=== PATIENT | male | born 1950 | race Caucasian/White ===

== ENCOUNTER 2016-10-31 15:34 | Inpatient (IN) ==
[2016-10-31] MEDS ORDERED: KETOROLAC 30 MG/1 ML VIAL IV STA (16:17)
--- NOTE | 2016-10-31 16:24 | Emergency Department Note ---
Arrival - Arrival Chief Complaint: Fever Stated Complaint: fever,sent by Dr Johnson ED Nursing Triage Note: Pt c/o Fever x 5 wks. Pt has been to see ABX several times for same complaint. Pt was sent to ER for admission by Dr Johnson. + BCX from Dr Johnson's office. Mode of Arrival: Wheelchair Limitations: No Limitations Source: Patient Time Seen by Provider: 10/31/16 16:16 - History of Present Illness HPI Narrative: This 65-year-old white male presents with 5 weeks of insidious progressive cough , weakness, and unrelenting fever. The patient is followed by Dr. Johnson and has been given several therapeutic interventions without resolution of the symptoms which in the past 2 weeks have only accelerated in their impact. The patient who is usually a very active person, has no energy whatsoever. He was seen yesterday by Dr. Johnson and begun on Augmentin and blood cultures were drawn. Subsequently blood cultures demonstrated gram-positive cocci and for this reason he is referred for admission to rule out possible endocarditis and delineate source of persistent fever. The patient denies night sweats, nausea, vomiting, or sinus symptoms. He does complain of mechanical sternal chest wall pain after 5 weeks of persistent dry cough. In association with this he has noted at times slight wheezing. Most significant however is acute onset of rash on the trunk, myalgias, and rheumalgias of onset this morning after beginning the Augmentin. The patient is otherwise in no acute medical distress currently. Onset (ago): week(s) (Patient presents 5 weeks post onset of symptoms) Allergies/Adverse Reactions: Allergies Allergy/AdvReac Type Severity Reaction Status Date / Time morphine AdvReac Confusion Verified 10/31/16 15:38 Review of System - Review of System 12 point system: reviewed and no additional remarkable complaints except as stated - Review of System Constitutional: Present: as per HPI Head/Ears/Nose/Throat: Present: see HPI Respiratory: Present: as per HPI Cardiovascular: Present: as per HPI Gastrointestinal: Present: as per HPI Musculoskeletal: Present: as per HPI Skin: Present: as per HPI Medical,Surgical,& Family Hx - Medical History Cardio: History of: Hypertension - Surgical History Abdominal Surgeries: Surgical HX of: Appendectomy, Cholecystectomy Orthopedic Surgeries: Surgical HX of;: Orthopedic Surgery (Fawad Shoulder, right knee, carpal tunnel) - Social History Smoking Status: Never smoker Exam Physical Examination: GENERAL: Well developed, well nourished white male in no acute distress. HEENT: Normocephalic. No trauma. Moist mucous membranes. EOMI. PERRLA. ENT NML NECK: Supple. No adenopathy. CARDIAC: Regular. No murmurs. Heart rate 98 CHEST: Clear to auscultation. No respiratory distress. O2 sat 96%. Tender right left costosternal junctions with compression. ABDOMEN: Soft. Nontender. Active bowel sounds. EXTREMITIES: No trauma. Normal ROM. No pedal edema. SKIN: No diaphoresis. No rash. NEURO: Alert. Neuro intact no focal deficits. Vital Signs: Vital Signs Temperature 100.8 F H 10/31/16 15:37 Pulse Rate 95 H 10/31/16 16:15 Respiratory Rate 20 10/31/16 16:15 Blood Pressure 129/77 10/31/16 16:15 O2 Sat by Pulse Oximetry 100 10/31/16 16:15 Course - Reevaluation(s) Reevaluation #1: Patient presents prepared for admission - Consultations Consultation #1: Discussed with hospitalist service who will admit for further evaluation treatment. Disposition Clinical Impression: Fever of unknown origin, Positive blood cultures, Penicillin allergy Case discussed with: patient, patient's family Time of Disposition: 16:31
[2016-10-31] MEDS ORDERED: KETOROLAC 30 MG/1 ML VIAL ONE (16:32)
[2016-10-31 16:33] LABS: Basophils % 0.1 % (0.0-0.8); Eosinophils % 0.6 % (0.00-10.9); Hematocrit 39.8 VOL% (42.0-52.0); Hemoglobin 14.6 GM/DL (14.0-18.0); Immature Granulocytes % 0.1 %; Immature Granulocytes Absolute 0.01 #; Lymphocytes # 1.7 10*3/uL (1.4-4.0); Mean Corpuscular HGB Conc 36.7 GM/DL (32-36); Mean Corpuscular Hemoglobin 33 PG (27-34); Mean Corpuscular Volume 89.6 FL (87-102); Mean Platelet Volume 9.3 FL (9.6-12.0); Monocytes # 0.5 10*3/uL (0.11-0.8); Monocytes % 6.5 % (1.7-12.7); Neutrophils % 69.7 % (38.7-73.9); Platelet Count 156 T/CUMM (130-400); Red Blood Count 4.44 MC/CUMM (3.8-5.5); Red Cell Distribution Width 13.2 % (9.3-17.3); White Blood Count 7.2 T/CUMM (4-12)
--- NOTE | 2016-10-31 16:45 | XRay Report ---
2 view chest 10/31/2016 4:17 PM Indication: Shortness of breath Fever Comparison: Not available Findings: Cardiomediastinal contours are normal. Lungs are clear bilaterally. . No acute osseous abnormalities. Visualized upper abdomen demonstrates no acute pathology. Impression: No acute cardiopulmonary findings PROCEDURE INTERPRETED AT [facility] DEPARTMENT OF RADIOLOGY Final Report Signed by: Ochoa Nair
[2016-10-31 16:52] LABS: INR 1.1; PT Patient Result 11.8 SECS
[2016-10-31 16:58] LABS: Apearance,Urine CLEAR (Clear); Bilirubin,Urine Negative (Negative); Blood, Urine Negative (Negative); Glucose,Urine (UA) Negative (Negative); Ketones,Urine Negative (Negative); Mucus,Urine Few /LPF (Occasional); Nitrite,Urine Negative (Negative); Protein,Urine Negative; RBC,Urine 2 /HPF (0-4); Urine Color Yellow (Yellow); Urine Specific Gravity 1.017 (1.001-1.035); WBC,Urine 1 /HPF (0-6)
--- NOTE | 2016-10-31 16:59 | EKG Report ---
Stationary ECG Study [facility] ER Test Date: 10/31/2016 4:57:42 PM Pat Name: GRECIA PALMA Department: Room: Gender: M Fee Clerk: : 1950 Requested by: Oskar Grace Order Number: [id number] Reading MD: STEPHENIE CANTU Intervals Schneider Rate: 89 P: 7 CO: 122 QRS: 32 QRSD: 73 T: 30 QT: 336 QTc: 383 Interpretive Statements SINUS RHYTHM WARNING: DATA QUALITY MAY AFFECT INTERPRETATION Electronically Signed On 10-31-16 19:18:33 CDT by STEPHENIE CANTU [email or web address]
[2016-10-31] MEDS ORDERED: PROMETHAZINE 25 MG/1 ML VIAL IM PRN (17:07)
[2016-10-31] MEDS ORDERED: ONDANSETRON 4 MG/2 ML VIAL IV PRN (17:07)
[2016-10-31] MEDS ORDERED: DOCUSATE SODIUM 100 MG CAPSULE PO PRN (17:07)
[2016-10-31] MEDS ORDERED: diphenhydrAMINE CAP 25 MG CAPSULE PO PRN (17:07)
[2016-10-31] MEDS ORDERED: MORPHINE 2 MG/1 ML SYRINGE IV PRN (17:07)
[2016-10-31] MEDS ORDERED: guaiFENesin/DM ER 600-30 MG TABLET PO PRN (17:07)
[2016-10-31] MEDS ORDERED: HYDROmorphone 2 MG/1 ML VIAL IV PRN (17:21)
--- NOTE | 2016-10-31 17:22 | Hospitalist History & Physical ---
Assessment and Plan - Time spent with patient Time spent with patient: Greater than 30 minutes (1) Fever of unknown origin Status: Acute Assessment and plan: 65-year-old white male with history of hypertension admitted by hospital medicine with fever of unknown origin. At Dr. Johnson's office he had 1 out of 2 blood cultures positive for gram-positive cocci and a sed rate of 70. Patient does have a fever of 100.8 in the ED but his chest x-ray, UA, and white blood cell counts are all normal. Repeat blood cultures are pending along with the remainder of his labs. Checking an echo to rule out endocarditis, HIV and hepatitis panels. We will go ahead and start vancomycin empirically and consult Dr. Fede Johnson to assist. Dr. Smith will see and examine patient and further recommendations to follow. Current Visit: Yes (2) Hypertension Status: Acute Current Visit: Yes (3) Myalgia Status: Acute Current Visit: Yes (4) Elevated sed rate Status: Acute Current Visit: Yes (5) Positive blood cultures Status: Acute Current Visit: Yes History of Present Illness Chief complaint: Fever and cough History of present illness: Mr. Coh is a 65 year old white male with history of hypertension presenting to the ED from Dr. Fede Johnson's office with fever and cough. Patient states he has had fever intermittently for approximately 5 weeks up to 102. He states he has had muscle aches along with a cough as well. Patient states he has been to his family physician who sent him to Dr. Johnson. Patient's been treated with antibiotics and steroids. Patient states the cough will disappear with the steroids but the fevers continued. For the last 2 weeks patient has gradually worsened. He states he is having terrible muscle aches with fever and chills at night. He says he has not been out of the bed much and he has not been eating well. Patient was seen in Dr. Johnson's office on 10/28/2016 where blood cultures were taken and 1 out of 2 are positive for gram-positive cocci. Upon exam, patient is awake and alert. His fever is 100.8 but the remainder of his vital signs are stable. He was put on Augmentin 2 days ago and he does have a rash on his abdomen and axillary region. Patient's white count is normal at 7.2, coags okay, urine is clear, and chest x-ray is normal. Patient's chemistry and repeat cultures are pending. After discussion with Dr. Davis the ED physician and Dr. Smith the admitting hospitalist, it was agreed patient would be admitted for further evaluation and treatment. Home Medications Medication Instructions Recorded Confirmed Type Esomeprazole Magnesium [Nexium] 40 mg PO QAM 10/31/16 10/31/16 History Lisinopril [Prinivil] 10 mg PO QAM 10/31/16 10/31/16 History Allergies Allergy/AdvReac Type Severity Reaction Status Date / Time morphine AdvReac Confusion Verified 10/31/16 15:38 Medical,Surgical,& Family Hx - Medical History Cardio: History of: Hypertension - Surgical History Cardiac Surgeries: Sugical HX of: Cardiac Catheterization Abdominal Surgeries: Surgical HX of: Appendectomy, Cholecystectomy Orthopedic Surgeries: Surgical HX of;: Orthopedic Surgery (Fawad Shoulder, right knee, carpal tunnel) - Family History Family History: Reports;: Family Heart Disease - Social History Smoking Status: Never smoker Frequency of Alcohol Use: None Type of Drug Use: None Marital Status: Lives With:: Spouse Functional capacity: independent ambulation 12 point system: reviewed and no additional remarkable complaints except as stated Exam - Constitutional Vitals: Period Temp Pulse Resp BP Sys/Dixon Pulse Ox Last 24 Hr 100.8 F-100.8 F 89-98 18-20 129-146/71-93 96-100 Exam: Constitutional System: No distress. No tremulousness. Head: Normocephalic, atraumatic. Ears, Nose and Throat System: No evidence of Otitis or Mastoiditis. No epistaxis or discharge Eyes System: Pupils equal, round, and reactive. Extraocular muscles intact. Neck: Supple, without adenopathy, No jugular venous distention. No thyromegaly, neck mass, or prior surgery apparent. Respiratory System: Chest clear to auscultation. Cardiovascular System: Heart with regular rate and rhythm. No murmur. GI System: Abdomen soft, nontender. Normo active bowel sounds present. Musculoskeletal System: limbs with no pedal edema. Full distal pulses. Neurological System: No discernable sensory deficit. No aphasia Psychiatric System: Conversation is rational Results - Labs CBC & BMP: 10/31/16 16:24 10/31/16 16:24 Lab Results: I have reviewed the past 24 hour labs - EKG EKG results: sinus rhythm - Diagnostic Findings Procedure: Chest x-ray: report reviewed by me (No acute process)
[2016-10-31 17:25] LABS: Alanine Aminotransferase 51 U/L (16-61); Albumin 3.2 G/DL (3.4-5.0); Alkaline Phosphatase 55 U/L (45-117); Aspartate Amino Transferase 45 U/L (0-37); Blood Urea Nitrogen 13 MG/DL (7-18); Calcium 8.4 MG/DL (8.5-10.1); Glucose 132 MG/DL (74-106); Potassium 4.1 MMOL/L (3.5-5.1); Sodium 136 MMOL/L (136-145); Total Protein 7.2 G/DL (6.4-8.3); Troponin I Only < 0.015 NG/ML (0.00-0.045)
[2016-10-31 17:42] LABS: Sedimentation Rate-Westergren 26 MM/HR (0-20)
[2016-10-31] MEDS ORDERED: KETOROLAC 15 MG/1 ML VIAL IV PRN (17:44)
[2016-10-31 17:54] LABS: Risk Ratio 3.66; Thyroid Stimulating Hormone 1.56 uIU/ml (0.358-3.74); VLDL CHOLESTEROL 14.4 MG/DL
[2016-10-31] MEDS: SODIUM CHLORIDE 0.9% 1,000 ML IV SCH (18:01)
[2016-10-31 18:32] LABS: HIV Antigen/Antibody Result Nonreactive (Nonreactive)
[2016-10-31 18:32] LABS: Hepatitis A Ab IgM Quant 0.07 Index; Hepatitis A Ab IgM Result Negative (Negative); Hepatitis B Core IgM Quant 0.13 Index; Hepatitis B Core IgM Result Negative (Negative); Hepatitis B Surface Ag Quant < 0.10 Index; Hepatitis B Surface Ag Result Negative (Negative); Hepatitis C Virus Ab Quant 0.03 Index; Hepatitis C Virus Ab Result Negative (Negative)
[2016-10-31] MEDS ORDERED: IPRATROPIUM 500 MCG/2.5 ML NEB RESP TX SCH (19:00)
--- NOTE | 2016-10-31 19:36 | Pulmonology Consult Note ---
Assessment and Plan (1) Fever of unknown origin Status: Acute Assessment and plan: The patient has had a recurrent fever and is not totally clear the source. He will get an echocardiogram. He is getting repeat cultures. Current Visit: Yes (2) Hypertension Status: Acute Assessment and plan: He does take lisinopril but I do not think this is causing a problem. Current Visit: Yes (3) Elevated sed rate Status: Acute Assessment and plan: He is having fever with elevated sed rate and will be evaluated for endocarditis and other infections. Current Visit: Yes (4) Positive blood cultures Status: Acute Assessment and plan: He will have repeat blood cultures. Current Visit: Yes History of Present Illness Chief complaint: Recurrent fever History of present illness: Mr. Cho is a 65 year old white male that is a former smoker and has a history of hypertension but have been quite active and healthy. I first saw him in the office in August when he was having a recurrent persistent cough and was actually having some reflux symptoms and trouble swallowing. His exam was unremarkable and his PFTs look fairly normal. However because of his persistent coughing symptoms we put him on Nexium and gave him a short course of prednisone along with a Breo inhaler. He says his cough cleared up quickly and he felt much better. He really did not use inhaler very much. He said he felt much better on October 15 and we actually told him to return as needed. He came back on October 28 stating that he felt bad again. He said he had been having fevers to 101 and 102 range and having some vague chest pain and aches. He just did not feel like doing much. Once again his chest x-ray was unchanged. He did not look that bad on exam. We did blood cultures along with a CBC and sed rate. His CBC was unremarkable but his sed rate was 70. His blood cultures had come back positive for gram-positive cocci. He was started on Augmentin and now he has a rash. He still feels terrible he says. He still has a dry cough. He is not terribly short of breath. He is not complaining of sinus congestion. He says he is having fever and chills. Home Medications Medication Instructions Recorded Confirmed Type Esomeprazole Magnesium [Nexium] 40 mg PO QAM 10/31/16 10/31/16 History Lisinopril [Prinivil] 10 mg PO QAM 10/31/16 10/31/16 History Allergies Allergy/AdvReac Type Severity Reaction Status Date / Time morphine AdvReac Confusion Verified 10/31/16 15:38 - Constitutional Constitutional: Present: chills, fatigue, fever(s), malaise. Absent: weight loss - EENT Eyes: Absent: loss of vision Ears: Absent: decreased hearing Nose, mouth and throat: Absent: dysphagia, headache(s), sinus pressure, sore throat - Cardiovascular Cardiovascular: Present: chest pain at rest, dyspnea on exertion - Respiratory Respiratory: Present: cough, dyspnea on exertion. Absent: hemoptysis, pain on inspiration, change in phlegm color - Gastrointestinal Gastrointestinal: Present: dyspepsia, heartburn. Absent: abdominal pain, change in bowel habits, nausea, vomiting - Genitourinary Genitourinary: Absent: difficulty urinating, dysuria, hematuria, urinary frequency - Musculoskeletal Musculoskeletal: Present: arthralgias, myalgias - Neurological Neurological: Absent: abnormal speech, focal weakness, paresthesias - Psychiatric Psychiatric: Present: anxiety Exam (Pulmonay) H&P - Constitutional Vitals: Period Temp Pulse Resp BP Sys/Dixon Pulse Ox Last 24 Hr 100.8 F-100.8 F 88-98 18-20 115-146/71-93 95-100 General appearance: no acute distress, over weight - Head Head exam: Present: normal inspection, normocephalic - Eye Eye exam: Present: EOMI. Absent: scleral icterus - ENT ENT exam: Present: normal exam, normal oropharynx - Neck Neck exam: Absent: lymphadenopathy, thyromegaly - Respiratory Respiratory exam: Present: clear to auscultation bilaterally. Absent: rales, wheezes - Cardiovascular Cardiovascular exam: Present: regular rate and rhythm. Absent: gallop, systolic murmur - GI/Abdominal GI/Abdominal exam: Present: soft. Absent: distended, organomegaly, tenderness - Extremities Exam Extremities exam: Absent: calf tenderness, edema - Neurological Exam Neurological exam: Present: alert, oriented X3, CN II-XII intact - Psychiatric Psychiatric exam: Present: anxious - Skin Skin exam: Present: rash Medical,Surgical,& Family Hx - Medical History Cardio: History of: Hypertension Musculoskeletal: History of: Back/Neck Problems (ruptured disc L4/L5) - Surgical History Cardiac Surgeries: Sugical HX of: Cardiac Catheterization Abdominal Surgeries: Surgical HX of: Appendectomy, Cholecystectomy Reproductive Surgeries: Patient denies;: Genitourinary Surgery Orthopedic Surgeries: Surgical HX of;: Orthopedic Surgery (Fawad Shoulder, right knee, carpal tunnel) - Family History Family History: Reports;: Family Cancer (uncles esophageal ca), Family Diabetes (mom), Family Heart Disease, Family Hypertension (siblings) Denies;: Family Anesthesia Reaction, Family Hematology, Family Psychiatric Problems, Family Stroke, Additional Family History - Social History Smoking Status: Never smoker Frequency of Alcohol Use: None Type of Drug Use: None Results - Labs CBC & BMP: 10/31/16 16:24 10/31/16 16:24 Labs: His sed rate in the office was 70 and his blood cultures positive - Diagnostic Findings Procedure: Chest x-ray: image reviewed by me, report reviewed by me (Chest x- ray is really unchanged. He may have some minimal increased markings in the left base.)
[2016-10-31] MEDS: VANCOMYCIN INJ 1,250 MG in SODIUM CHLORIDE 0.9% 250 ML IV SCH (20:11)
[2016-11-01] MEDS: ALBUTEROL/IPRATROPIUM 3 ML NEB RESP TX SCH ×4 (01:55→19:43)
[2016-11-01] MEDS: SODIUM CHLORIDE 0.9% 1,000 ML IV SCH ×3 (02:45→19:08)
[2016-11-01 06:12] LABS: Basophils % 0.3 % (0.0-0.8); Eosinophils # 0.1 10*3/uL (0.0-0.87); Eosinophils % 1.5 % (0.00-10.9); Hematocrit 37.1 VOL% (42.0-52.0); Hemoglobin 13.5 GM/DL (14.0-18.0); Immature Granulocytes % 0.3 %; Immature Granulocytes Absolute 0.02 #; Lymphocytes # 1.4 10*3/uL (1.4-4.0); Lymphocytes % 24.2 % (21.2-54.2); Mean Corpuscular HGB Conc 36.4 GM/DL (32-36); Mean Corpuscular Hemoglobin 33 PG (27-34); Mean Corpuscular Volume 89.8 FL (87-102); Mean Platelet Volume 9.8 FL (9.6-12.0); Monocytes # 0.5 10*3/uL (0.11-0.8); Monocytes % 8.5 % (1.7-12.7); Neutrophils # 3.8 10*3/uL (1.4-7.4); Neutrophils % 65.2 % (38.7-73.9); Platelet Count 149 T/CUMM (130-400); Red Blood Count 4.13 MC/CUMM (3.8-5.5); Red Cell Distribution Width 12.8 % (9.3-17.3); White Blood Count 5.9 T/CUMM (4-12)
[2016-11-01 06:42] LABS: Calcium 8.3 MG/DL (8.5-10.1); Osmolality,Calculated 273.8 MOS/KG (273-304); Potassium 4.3 MMOL/L (3.5-5.1)
[2016-11-01] MEDS ORDERED: PANTOPRAZOLE 40 MG TABLET PO SCH (09:00)
--- NOTE | 2016-11-01 09:13 | Hospitalist Progress Note ---
Assessment and Plan (1) Bacteremia Status: Acute Assessment and plan: Blood cultures have demonstrated gram-positive cocci. He had been treated unsuccessfully as an outpatient briefly with Augmentin. He was begun on intravenous vancomycin yesterday. I have consulted infectious diseases and cardiology, the latter for a possible transesophageal echocardiogram. He is scheduled to undergo a transthoracic echocardiogram today. Current Visit: Yes (2) Fever of unknown origin Status: Acute Assessment and plan: See above. Current Visit: Yes (3) Drug-induced skin rash Status: Acute Assessment and plan: He developed the rash after starting therapy with Augmentin. He has no previously known drug allergies. It is most likely that the rash is due to an allergy to Augmentin. Current Visit: Yes Hospitalist: Subjective Interval history: Patient was admitted to the hospital yesterday with fever of unknown origin of approximately 1 month's duration and gram-positive cocci bacteremia. He had been begun on therapy with Augmentin as an outpatient following which he developed an erythematous rash. He has no specific complaint. He was begun yesterday on intravenous vancomycin. Exam - Constitutional Vitals: Period Temp Pulse Resp BP Sys/Dixon Pulse Ox Last 24 Hr 98.9 F-100.8 F 79-98 18-20 112-146/70-93 95-100 General appearance: no acute distress - Head Head exam: Present: normal inspection - Neck Neck exam: Present: normal inspection - Respiratory Respiratory exam: Present: clear to auscultation bilaterally - Cardiovascular Cardiovascular exam: Present: regular rate and rhythm - GI/Abdominal GI/Abdominal exam: Present: normal bowel sounds, soft, other (Nontender with no palpable masses or hepatosplenomegaly.) - Extremities Exam Extremities exam: Present: normal inspection - Neurological Exam Neurological exam: Present: alert, oriented X3 - Skin Skin exam: Present: other (Macular erythematous rash of his abdomen, left shoulder, and upper back.) Results - Labs CBC & BMP: 11/01/16 05:18 11/01/16 05:18
--- NOTE | 2016-11-01 10:01 | Pulmonology Progress Note ---
Pulmonary - PN: Subj Interval history: Patient is a 65-year-old man that comes in with persistent fevers and has had a somewhat chronic cough. He has not been feeling well for quite some time. He came in because he was having fever again and in the office this past week we had a positive blood culture. He has a dry cough. His temp was 100.8 last night. He had a sed rate of 70 in the office but is down to 26 now. His white count is 5900. He says he is feeling a little better this morning and his fever is down. He is not having any shortness of breath. He still has a dry cough. Otherwise he looks like he is feeling a little better. Exam (Progress Note) - Constitutional Vitals: Period Temp Pulse Resp BP Sys/Dixon Pulse Ox Last 24 Hr 98.9 F-100.8 F 79-98 18-20 112-146/70-93 95-100 Exam: General appearance: no acute distress, over weight, he looks comfortable this morning. - Head Head exam: Present: normal inspection, normocephalic - Eye Eye exam: Present: EOMI. Absent: scleral icterus - ENT ENT exam: Present: normal exam, normal oropharynx - Neck Neck exam: Absent: lymphadenopathy, thyromegaly - Respiratory Respiratory exam: Present: clear to auscultation bilaterally. He has good breath sounds bilaterally and he still moving air well. I do not hear any signs of consolidation. - Cardiovascular Cardiovascular exam: Present: regular rate and rhythm. No definite murmur. - GI/Abdominal GI/Abdominal exam: Present: soft. Absent: distended, organomegaly, tenderness - Extremities Exam Extremities exam: Absent: calf tenderness, edema - Neurological Exam Neurological exam: Present: alert, oriented X3, CN II-XII intact - Psychiatric Psychiatric exam: Present: anxious - Skin Skin exam: Present: rash Results - Labs CBC & BMP: 11/01/16 05:18 11/01/16 05:18 Assessment and Plan (1) Fever of unknown origin Status: Acute Assessment and plan: The patient has had a recurrent fever and is not totally clear the source. He will get an echocardiogram. He is getting repeat cultures. His fever is down this morning. Current Visit: Yes (2) Hypertension Status: Acute Assessment and plan: He does take lisinopril but I do not think this is causing a problem. Current Visit: Yes (3) Elevated sed rate Status: Acute Assessment and plan: He is having fever but his sed rate is better now. Current Visit: Yes (4) Positive blood cultures Status: Acute Assessment and plan: He will have repeat blood cultures. His fever is down this morning. He will get an echocardiogram. Current Visit: Yes
[2016-11-01] MEDS: PANTOPRAZOLE 40 MG TABLET PO SCH (10:36)
[2016-11-01] MEDS: LISINOPRIL 10 MG TABLET PO SCH (10:36)
[2016-11-01] MEDS: VANCOMYCIN INJ 1,250 MG in SODIUM CHLORIDE 0.9% 250 ML IV SCH ×2 (10:36→20:55)
[2016-11-01] MEDS: ACETAMINOPHEN 325 MG TABLET PO PRN (15:52)
[2016-11-01] MEDS: ENOXAPARIN 40 MG/0.4 ML SYRINGE SUBCUT SCH (17:00)
--- NOTE | 2016-11-01 19:36 | Cardiology Consult Note ---
Assessment and Plan (1) Bacteremia Status: Acute Current Visit: Yes (2) Fever of unknown origin Status: Acute Current Visit: Yes (3) Hypertension Status: Acute Current Visit: Yes (4) Cough Status: Acute Current Visit: Yes (5) Drug-induced skin rash Status: Acute Current Visit: Yes History of Present Illness - Data of Consult Patient: new to practice Consult date: 11/01/16 Requesting Physician: Teressa Duenas - Consult Narrative Reason for consult: fever History of present illness: Vendette: Dr. Viveros Mr. Cho is a 65 year old male without a prior cardiac history, and with risk factors significant for hypertension. He was admitted to the hospital for fever of unknown origin. Over the last 2-3 months he has had a decline in his overall health with generalized malaise, fatigue and intermittent fevers. He has also been experiencing a cough that is occasionally productive of white sputum although not normally. He was started on an CANDACE inhibitor approximately 4 months ago, he did try to withhold his CANDACE inhibitor but did not notice a change in his cough when he did this. He was treated with some Augmentin by his primary care provider and then eventually developed a rash. He has not noticed any signs of infection on his body, denies any sores, earaches, sore throat, sinus pain. He has had a significant decline in his exercise tolerance. He has a progressive dyspnea on exertion that has been occurring over the last year, and now he is dyspneic with 100 yards. He has had some mild lower extremity edema. He denies any chest pain. He has had some intermittent palpitations and has had a few presyncopal episodes over the last few months, 2 of which occurred while driving. He was found to have gram-positive cocci bacteremia. There is no clear source of this bacteremia. We are being consulted for possible SHAYAN. Chest x-rays been unremarkable. Echocardiogram shows preserved LV systolic function, minor valvular regurgitations, pulmonary hypertension, but in general the leaflets are not seen well enough to exclude valvular vegetation. He has developed a rash that is somewhat pruritic over his thorax that seems to be related to the timing of his antibiotic usage (Augmentin). I has some occasional arthralgias. He did have some intermittent nausea but overall he thinks that has improved. He saw Dr. Viveros greater than 5 years ago and underwent a cardiac catheterization at that time which did not show any significant obstructive coronary disease. He has never been diagnosed with any arrhythmias. Impression and plan: 1. Gram-positive bacteremia-a source has not been identified. I agree we should proceed with transesophageal echocardiogram, which will likely occur on Thursday when we can get anesthesia assistance. I have discussed the role, risks , benefits and alternatives of this procedure with the patient and his . 2. Presyncope-we will place the patient on telemetry. 3. Palpitations-we will place patient on telemetry. 4. Hypertension-chronic 5. Cough-this could represent an infectious source, although could be related to his CANDACE inhibitor therapy. I am going to go ahead and discontinue his CANDACE inhibitor. CC: Raudel Gamez - Home Medications and Allergies Home Medications: Home Medications Medication Instructions Recorded Confirmed Type Esomeprazole Magnesium [Nexium] 40 mg PO QAM 10/31/16 10/31/16 History Lisinopril [Prinivil] 10 mg PO QAM 10/31/16 10/31/16 History Allergies/Adverse Reactions: Allergies Allergy/AdvReac Type Severity Reaction Status Date / Time morphine AdvReac Confusion Verified 10/31/16 15:38 12 point system: reviewed and no additional remarkable complaints except as stated Medical,Surgical,& Family Hx - Medical History Cardio: History of: Hypertension Musculoskeletal: History of: Back/Neck Problems (ruptured disc L4/L5) - Surgical History Cardiac Surgeries: Sugical HX of: Cardiac Catheterization Abdominal Surgeries: Surgical HX of: Appendectomy, Cholecystectomy Reproductive Surgeries: Patient denies;: Genitourinary Surgery Orthopedic Surgeries: Surgical HX of;: Orthopedic Surgery (Fawad Shoulder, right knee, carpal tunnel) - Family History Family History: Reports;: Family Cancer (uncles esophageal ca), Family Diabetes (mom), Family Heart Disease, Family Hypertension (siblings) Denies;: Family Anesthesia Reaction, Family Hematology, Family Psychiatric Problems, Family Stroke, Additional Family History - Social History Smoking Status: Never smoker Frequency of Alcohol Use: None Type of Drug Use: None Marital Status: Lives With:: Spouse Functional capacity: independent ambulation Physical Examination Vital Signs Temp Pulse Resp BP Pulse Ox 100.8 F H 98 H 20 131/93 96 10/31/16 15:37 10/31/16 15:37 10/31/16 15:37 10/31/16 15:37 10/31/16 15:37 Exam: General appearance: normal weight, no acute distress - Head Head exam: Present: normal inspection, normocephalic, atraumatic. Absent: hematoma, laceration - Eye Eye exam: Present: EOMI. Absent: conjunctival injection, nystagmus, periorbital swelling, scleral icterus, laceration to eyelids Pupils: Present: PERRL. Absent: constricted, dilated, fixed, irregular, unequal - ENT ENT exam: Present: normal exam, normal external ear exam - Neck Neck exam: Present: normal inspection. Absent: lymphadenopathy, meningismus, tenderness, thyromegaly - Respiratory Respiratory exam: Present: There is scant crackles in the right base. Absent: accessory muscle use, chest wall tenderness - Cardiovascular Cardiovascular exam: Present: regular rate and rhythm, no appreciable murmur. Absent: carotid bruit, gallop, JVD, rubs - GI/Abdominal GI/Abdominal exam: Present: normal bowel sounds, soft. Absent: distended, firm , guarding, hernia, mass, tenderness, rebound. - Extremities Exam Extremities exam: Present: normal inspection, normal capillary refill. Absent: calf tenderness, edema - Back Exam Back exam: Present: normal inspection. Absent: muscle spasm, vertebral tenderness - Neurological Exam Neurological exam: Present: alert, oriented X3, grossly intact without resting or intention tremor - Psychiatric Psychiatric exam: Present: normal affect, normal mood - Skin Skin exam: Present: Erythematous rash with mild urticaria on the thorax and proximal limbs. Absent: cyanosis, diaphoretic Result/EKG - Labs CBC & BMP: 11/01/16 05:18 11/01/16 05:18 Lab Results: I have reviewed the past 24 hour labs Labs: Laboratory Results - last 24 hr 11/01/16 11/01/16 05:18 05:18 WBC 5.9 RBC 4.13 Hgb 13.5 L Hct 37.1 L MCV 89.8 MCH 33 MCHC 36.4 H RDW 12.8 Plt Count 149 MPV 9.8 Neut % (Auto) 65.2 Lymph % (Auto) 24.2 Hays % (Auto) 8.5 Eos % (Auto) 1.5 Baso % (Auto) 0.3 Neut # (Auto) 3.8 Lymph # (Auto) 1.4 Hays # (Auto) 0.5 Eos # (Auto) 0.1 Baso # (Auto) 0.0 Immature Gran % 0.3 Nucleated RBC % 0.0 Immature Gran # 0.02 Nucleated RBCs # 0.00 Immature Plt Fraction 0.0 Sodium 137 Potassium 4.3 Chloride 103 Carbon Dioxide 27 Anion Gap 11.3 BUN 14 Creatinine 0.90 GFR Calculation 106 BUN/Creatinine Ratio 15.00 Glucose 90 Calculated Osmolality 273.8 Calcium 8.3 L Magnesium 2.0 - Diagnostic Findings Procedure: Ultrasound: image reviewed by me, X-ray: report reviewed by me
--- NOTE | 2016-11-01 21:14 | ECHO Report ---
Taz Cho Exam Date: 11/01/2016 10:08 Referring Physician: Technologist: Hortensia Wiggins RDCS Age: 65 Ht (in): 67 Wt (lb): 206 Gender: M Exam Location: [facility] Echo Indications: Chest pain, unspecified, Essential (primary) hypertension, Shortness of breath, Fever unknown origin, Positive blood cultures, Elevated sed rate, Chronic fatigue, unspecified, Cough BP: 112 / 77 HR: 85 Rhythm: Sinus Technical Quality: Fair IMPRESSIONS Normal LV systolic function, ejection fraction 60%. Grade 1/4 diastolic dysfunction. Mild right ventricular dilation. Mild left atrial enlargement. Mild mitral, tricuspid and pulmonic regurgitation. Mild to moderate aortic regurgitation. Pulmonary hypertension with pulmonary artery pressure estimated at 62 mmHg. The valves are not seen well enough to exclude vegetation. MEASUREMENTS (Male / Female) Normal Values 2D ECHO LV Diastolic Diameter PLAX 4.9 cm 4.2 - 5.9 / 3.9 - 5.3 cm LV Systolic Diameter PLAX 3.1 cm LV Fractional Shortening PLAX 36.4 % IVS Diastolic Thickness 1.0 cm 0.6 - 1.0 / 0.6 - 0.9 cm LVPW Diastolic Thickness 1.0 cm 0.6 - 1.0 / 0.6 - 0.9 cm RV Internal Dim ED PLAX 3.5 cm Aortic Root Diameter 3.3 cm LA Systolic Diameter LX 4.4 cm 3.0 - 4.0 / 2.7 - 3.8 cm DOPPLER TR Peak Velocity 361.0 cm/s TR Peak Gradient 52.1 mmHg FINDINGS Left Ventricle Normal left ventricular cavity size. Mild left ventricular hypertrophy. Left ventricular ejection fraction is estimated at 60 %. Right Ventricle Mildly increased right ventricular size. Right Atrium Normal size. Left Atrium Mildly increased left atrial size. Mitral Valve Morphologically normal mitral valve. Mild mitral valve regurgitation. Aortic Valve Trileaflet aortic valve. No aortic valve stenosis. [id number] aortic valve regurgitation. Tricuspid Valve Morphologically normal tricuspid valve. Mild tricuspid valve regurgitation. Tricuspid regurgitation velocities suggest a PAP of 62.1 mmHg. Pulmonic Valve Morphologically normal pulmonic valve. Trace pulmonary valve regurgitation. Pericardium Normal pericardium without effusion. Aorta Normal ascending aorta dimension. Keila Sumner MD (Electronically Signed) Final Date: 01 November 2016 21:12
[2016-11-02] MEDS: ACETAMINOPHEN 325 MG TABLET PO PRN ×4 (00:30→21:00)
[2016-11-02] MEDS: ALBUTEROL/IPRATROPIUM 3 ML NEB RESP TX SCH ×4 (00:42→19:27)
[2016-11-02] MEDS: SODIUM CHLORIDE 0.9% 1,000 ML IV SCH ×3 (03:24→21:00)
--- NOTE | 2016-11-02 09:18 | Hospitalist Progress Note ---
Assessment and Plan (1) Bacteremia Status: Acute Assessment and plan: Blood cultures have demonstrated gram-positive cocci. He had been treated unsuccessfully as an outpatient briefly with Augmentin. He was begun on intravenous vancomycin the day before yesterday. He is to undergo a transesophageal echocardiogram tomorrow. Infectious diseases has been consulted. Current Visit: Yes (2) Fever of unknown origin Status: Acute Assessment and plan: See above. Current Visit: Yes (3) Drug-induced skin rash Status: Acute Assessment and plan: He developed the rash after starting therapy with Augmentin. He has no previously known drug allergies. It is most likely that the rash is due to an allergy to Augmentin. The rash is resolving. Current Visit: Yes Hospitalist: Subjective Interval history: Mr. Cho is doing well with no complaints. He continues on intravenous vancomycin for gram-positive cocci bacteremia. Blood cultures in the hospital have been negative. He was seen yesterday by cardiology who is to perform a transesophageal echocardiogram tomorrow morning. Exam - Constitutional Vitals: Period Temp Pulse Resp BP Sys/Dixon Pulse Ox Last 24 Hr 97.3 F-101.4 F 70-104 16-20 108-142/56-75 93-99 General appearance: no acute distress - Head Head exam: Present: normal inspection - Neck Neck exam: Present: normal inspection - Respiratory Respiratory exam: Present: clear to auscultation bilaterally - Cardiovascular Cardiovascular exam: Present: regular rate and rhythm - GI/Abdominal GI/Abdominal exam: Present: normal bowel sounds, soft, other (Nontender with no palpable masses or hepatosplenomegaly.) - Extremities Exam Extremities exam: Present: normal inspection - Skin Skin exam: Present: normal color, warm, intact Results - Labs CBC & BMP: 11/01/16 05:18 11/01/16 05:18
[2016-11-02] MEDS: LISINOPRIL 10 MG TABLET PO SCH (09:30)
[2016-11-02] MEDS: PANTOPRAZOLE 40 MG TABLET PO SCH (09:30)
[2016-11-02] MEDS: VANCOMYCIN INJ 1,250 MG in SODIUM CHLORIDE 0.9% 250 ML IV SCH ×3 (09:31→17:30)
--- NOTE | 2016-11-02 09:31 | Pulmonology Progress Note ---
Pulmonary - PN: Subj Interval history: Patient is a 65-year-old man that comes in with persistent fevers and has had a somewhat chronic cough. He has not been feeling well for quite some time. He came in because he was having fever again and in the office this past week we had a positive blood culture. He has a dry cough. He still had a temperature to 100.8 last night. His fever is down now when he feels a little better. His cough may be a little better and is not short of breath. He said he slept fairly well and his myalgias and arthralgias are better. He still has a rash. His Vanco trough is 7.8. Repeat cultures are still negative. He will have a SHAYAN tomorrow. Exam (Progress Note) - Constitutional Vitals: Period Temp Pulse Resp BP Sys/Dixon Pulse Ox Last 24 Hr 97.3 F-101.4 F 70-104 16-20 108-142/56-75 93-99 Exam: General appearance: no acute distress, over weight, he looks comfortable and in no distress at present. - Head Head exam: Present: normal inspection, normocephalic - Eye Eye exam: Present: EOMI. Absent: scleral icterus - ENT ENT exam: Present: normal exam, normal oropharynx, no sinus tenderness - Neck Neck exam: Absent: lymphadenopathy, thyromegaly - Respiratory Respiratory exam: Present: clear to auscultation bilaterally. He has good breath sounds bilaterally and he still moving air well. I do not hear any signs of consolidation. - Cardiovascular Cardiovascular exam: Present: regular rate and rhythm. No definite murmur. - GI/Abdominal GI/Abdominal exam: Present: soft. Absent: distended, organomegaly, tenderness - Extremities Exam Extremities exam: Absent: calf tenderness, edema - Neurological Exam Neurological exam: Present: alert, oriented X3, CN II-XII intact - Psychiatric Psychiatric exam: Present: anxious - Skin Skin exam: Present: rash Results - Labs CBC & BMP: 11/01/16 05:18 11/01/16 05:18 Assessment and Plan (1) Fever of unknown origin Status: Acute Assessment and plan: The patient has had a recurrent fever and is not totally clear of the source. His repeat cultures are negative so far. He will get a SHAYAN tomorrow. Current Visit: Yes (2) Hypertension Status: Acute Assessment and plan: He does take lisinopril but I do not think this is causing a problem. Cardiology is stopping the lisinopril. Current Visit: Yes (3) Elevated sed rate Status: Acute Assessment and plan: He is having fever but his sed rate is better now. Current Visit: Yes (4) Positive blood cultures Status: Acute Assessment and plan: He will have repeat blood cultures. So far the repeat cultures are negative. He still had a low-grade fever last night. Current Visit: Yes
--- NOTE | 2016-11-02 16:43 | Cardiology Progress Note ---
Assessment and Plan (1) Bacteremia Status: Acute Current Visit: Yes (2) Fever of unknown origin Status: Acute Current Visit: Yes (3) Hypertension Status: Acute Current Visit: Yes (4) Cough Status: Acute Current Visit: Yes (5) Drug-induced skin rash Status: Acute Current Visit: Yes Cardiology - PN: Subj Interval history: Clinical Director: None Summary: The patient was admitted for evaluation of fever of unknown origin, possible gram-positive bacteremia. We have been consulted for possible transesophageal echocardiogram. November 02, 2016: Overall the evening was uneventful. He continues to have fever. No acute complaints. Still has a mild cough. No chest pain, shortness of breath. Echocardiogram did not demonstrate details of the valves, overall preserved systolic function with some mild valvular regurgitation. See that report. Impression and plan: 1. Gram-positive bacteremia-a source has not been identified. I agree we should proceed with transesophageal echocardiogram, which will likely occur on Thursday when we can get anesthesia assistance. I have discussed the role, risks , benefits and alternatives of this procedure with the patient and his . 2. Presyncope-we will place the patient on telemetry. 3. Palpitations-we will place patient on telemetry. 4. Hypertension-chronic 5. Cough-this could represent an infectious source, although could be related to his CANDACE inhibitor therapy. I am going to go ahead and discontinue his CANDACE inhibitor. We will proceed with SHAYAN in the morning. Exam (Progress Note) - Constitutional Vitals: Period Temp Pulse Resp BP Sys/Dixon Pulse Ox Last 24 Hr 97.3 F-101.4 F 70-96 16-20 117-131/63-75 93-98 Exam: General appearance: normal weight, no acute distress - Head Head exam: Present: normal inspection, normocephalic, atraumatic. Absent: hematoma, laceration - Eye Eye exam: Present: EOMI. Absent: conjunctival injection, nystagmus, periorbital swelling, scleral icterus, laceration to eyelids Pupils: Present: PERRL. Absent: constricted, dilated, fixed, irregular, unequal - ENT ENT exam: Present: normal exam, normal external ear exam - Neck Neck exam: Present: normal inspection. Absent: lymphadenopathy, meningismus, tenderness, thyromegaly - Respiratory Respiratory exam: Present: clear to auscultation bilaterally. Absent: accessory muscle use, chest wall tenderness - Cardiovascular Cardiovascular exam: Present: regular rate and rhythm. Absent: carotid bruit, gallop, JVD, rubs - GI/Abdominal GI/Abdominal exam: Present: normal bowel sounds, soft. Absent: distended, firm , guarding, hernia, mass, tenderness, rebound. - Extremities Exam Extremities exam: Present: normal inspection, normal capillary refill. Absent: calf tenderness, edema - Back Exam Back exam: Present: normal inspection. Absent: muscle spasm, vertebral tenderness - Neurological Exam Neurological exam: Present: alert, oriented X3, grossly intact without resting or intention tremor - Psychiatric Psychiatric exam: Present: normal affect, normal mood - Skin Skin exam: Present: normal color, warm, dry, intact. Absent: cyanosis, diaphoretic, rash, urticaria Result/EKG - Labs CBC & BMP: 11/01/16 05:18 11/01/16 05:18 Lab Results: I have reviewed the past 24 hour labs Labs: Laboratory Results - last 24 hr 11/02/16 07:48 Vancomycin Trough 7.8 L
--- NOTE | 2016-11-02 16:45 | History and Physical Update ---
Sedation H&P Update - History and Physical H&P was reviewed, the patient examined and there: are no changes in the patients condition since last H&P was completed. - Dictation Physical: refer to H&P completed by admitting physician - Physical Exam Mental Status: alert and oriented Heart: regular rate and rhythm Lung: clear to auscultation Abdomen: within normal limits Vitals: within normal limits - Sedation Plan for Sedation: moderate Patient Consent: Procedure disscussed with patient and patinet has consented., Risks and benefits were discussed with patient,including infection,, bleeding, injury to surrounding structures, seizure, temporary nerve, Patient understands and accepts potential risks/benefits and agrees to, proceed. ASA Class: III Airway Assessment: Class II: Soft palate, uvula, fauces visible
[2016-11-02] MEDS: ENOXAPARIN 40 MG/0.4 ML SYRINGE SUBCUT SCH (17:30)
[2016-11-03] MEDS: VANCOMYCIN INJ 1,250 MG in SODIUM CHLORIDE 0.9% 250 ML IV SCH ×2 (01:18→09:34)
[2016-11-03] MEDS: ALBUTEROL/IPRATROPIUM 3 ML NEB RESP TX SCH ×4 (01:39→19:20)
[2016-11-03] MEDS: SODIUM CHLORIDE 0.9% 1,000 ML IV SCH ×2 (05:56→17:22)
--- NOTE | 2016-11-03 08:50 | Hospitalist Progress Note ---
Assessment and Plan (1) Bacteremia Status: Acute Assessment and plan: Blood cultures have demonstrated gram-positive cocci. He had been treated unsuccessfully as an outpatient briefly with Augmentin. He is presently being treated with intravenous vancomycin. He is undergoing a transesophageal echocardiogram today. Infectious diseases has been consulted. Current Visit: Yes (2) Fever of unknown origin Status: Acute Assessment and plan: See above. Current Visit: Yes (3) Drug-induced skin rash Status: Acute Assessment and plan: He developed the rash after starting therapy with Augmentin. He has no previously known drug allergies. It is most likely that the rash is due to an allergy to Augmentin. The rash is resolving. Current Visit: Yes Hospitalist: Subjective Interval history: He passed an uneventful night. He is generally doing well with no specific complaints. He is undergoing a transesophageal echocardiogram today. He continues treatment with intravenous vancomycin for gram-positive cocci bacteremia. Exam - Constitutional Vitals: Period Temp Pulse Resp BP Sys/Dixon Pulse Ox Last 24 Hr 98.6 F-102.7 F 80-91 18-20 124-140/61-81 94-97 General appearance: no acute distress - Head Head exam: Present: normal inspection - Neck Neck exam: Present: normal inspection - Respiratory Respiratory exam: Present: clear to auscultation bilaterally - Cardiovascular Cardiovascular exam: Present: regular rate and rhythm - GI/Abdominal GI/Abdominal exam: Present: normal bowel sounds, soft, other (Nontender with no palpable masses or hepatosplenomegaly.) - Extremities Exam Extremities exam: Present: normal inspection - Neurological Exam Neurological exam: Present: alert, oriented X3 - Skin Skin exam: Present: normal color, warm, intact Results - Labs CBC & BMP: 11/01/16 05:18 11/01/16 05:18
[2016-11-03] MEDS: PANTOPRAZOLE 40 MG TABLET PO SCH (09:33)
[2016-11-03] MEDS: LISINOPRIL 10 MG TABLET PO SCH (09:33)
--- NOTE | 2016-11-03 09:54 | ECHO Report ---
Marquis Taz Exam Date: 11/03/2016 07:35 Referring Physician: Technologist: Jami Montgomery Age: 65 Ht (in): 67 Wt (lb): 206 Gender: M Exam Location: [facility] Echo Pre-op Dx: r/o veg Post-op Dx: No vegetations BP: / HR: Rhythm: Sinus Technical Quality: Fair Specimens Taken None Devices Implanted None Medications Per anesthesiology Complications None Estimated Blood Loss 0 cc Proc. Components Informed consent was obtained and the patient underwent timeout per protocol. Anesthesiology was present and provided conscious sedation. The patient was adequately sedated the transesophageal probe was lubricated and advanced through the esophagus, and placed in the retrocardiac position where images were obtained. IMPRESSIONS Grossly normal chamber sizes and function. No clear valvular vegetations were observed although the right-sided valves were suboptimally visualized. Mild mitral, tricuspid and aortic regurgitation. 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 MEASUREMENTS (Male / Female) Normal Values FINDINGS Left Ventricle Grossly normal size and function. Right Ventricle Grossly normal size and function. Right Atrium Grossly normal size. There may be a eustachian valve or Chiari network. Left Atrium Grossly normal size, no observed thrombus. LA Appendage No observed thrombus. IA Septum Intact by color Doppler interrogation and agitated saline contrast study. Mitral Valve Structurally normal with mild regurgitation. No vegetations are seen. Aortic Valve Tricuspid, structurally normal with mild regurgitation. No vegetations are seen. Tricuspid Valve Suboptimally visualized, but grossly appears to be structurally normal without obvious vegetation. Mild regurgitation is present. Pulmonic Valve Not well seen. No regurgitation is identified. Pericardium No significant effusion. Aorta There is grade 3 atheromatous disease seen in the more distal descending aorta. Keila Sumner MD (Electronically Signed) Final Date: 03 November 2016 09:53
[2016-11-03] MEDS ORDERED: PROPOFOL 200 MG/20 ML VIAL IV ONE (11:53)
--- NOTE | 2016-11-03 13:11 | Infectious Disease Consult ---
Assessment and Plan (1) Drug-induced skin rash Status: Acute Current Visit: Yes (2) Fever of unknown origin Status: Acute Assessment and plan: This fever has been present for 5 weeks and the patient is nontoxic appearing. I am suspicious for noninfectious causes such as rheumatologic conditions/ collagen vascular diseases especially given his joint pains. Patient was bitten by tick 3 months ago but would not expect infection acquired from that to be causing fever at this time. Recommend agents: 1. Chest x-ray 2. Discontinue vancomycin 3. Start empiric doxycycline 100 mg twice a day 4. Consider consultation with admin dir Dr. Singleton 5. May need to consider CT chest abdomen and pelvis to look for deep-seated focus of infection 6. Follow-up serologies that are pending [Rickettsia and Lyme] Thank you very much for the consult. Will follow. Discussed with patient's in detail at bedside Current Visit: Yes (3) Hypertension Status: Acute Current Visit: Yes (4) Positive blood cultures Status: Acute Assessment and plan: MRSGuerline in 1 of 2 sets of blood cultures. This is indicative of contamination. His repeat blood cultures are negative so far. Recommendations: Discontinue vancomycin as risks of continuing this drug outweigh benefits. Follow-up finalized results of repeat blood cultures. Current Visit: Yes History of Present Illness Chief complaint: Fever, positive blood culture History of present illness: Mr. Cho is a 65 year old male who has been healthy all his life except for hypertension started having fever 5 weeks ago. This is associated with chills body aches and malaise with fatigue. There were a few days when he did not have fever but on most days he had fever and there was no diurnal variation. The patient's appetite has been poor although he has not lost significant amount of weight. He admits to pain in his muscles and joints especially his left shoulder fluctuating over the past 5 weeks. Because of progressive weakness he went to his doctor last week and had labs done including blood cultures. His call back after one blood culture came back positive. The patient has been on vancomycin since admission. He has been getting fever every day, last night more than 102. His appetite has been okay in the hospital and there is no nausea vomiting or diarrhea. He has had cough and saw Dr. Johnson in the outpatient setting and got steroids for 5 days along with Augmentin. When he took these meds since the cough dissipated but returned after the finish the steroids. The Augmentin caused him a rash that he stopped it after 2 days. In the hospital the rash seems to have worsened according to his . I am asked to assist with management. Patient without any significant exposures except he did get bitten by tick 3 months ago. No travel. He is retired. No ill contacts. Home Medications Medication Instructions Recorded Confirmed Type Esomeprazole Magnesium [Nexium] 40 mg PO QAM 10/31/16 10/31/16 History Lisinopril [Prinivil] 10 mg PO QAM 10/31/16 10/31/16 History Allergies Allergy/AdvReac Type Severity Reaction Status Date / Time morphine AdvReac Confusion Verified 10/31/16 15:38 12 point system: reviewed and no additional remarkable complaints except as stated (Per HPI) Medical,Surgical,& Family Hx - Medical History Cardio: History of: Hypertension Musculoskeletal: History of: Back/Neck Problems (ruptured disc L4/L5) - Surgical History Cardiac Surgeries: Sugical HX of: Cardiac Catheterization Abdominal Surgeries: Surgical HX of: Appendectomy, Cholecystectomy Reproductive Surgeries: Patient denies;: Genitourinary Surgery Orthopedic Surgeries: Surgical HX of;: Orthopedic Surgery (Fawad Shoulder, right knee, carpal tunnel) - Family History Family History: Reports;: Family Cancer (uncles esophageal ca), Family Diabetes (mom), Family Heart Disease, Family Hypertension (siblings) Denies;: Family Anesthesia Reaction, Family Hematology, Family Psychiatric Problems, Family Stroke, Additional Family History - Social History Smoking Status: Never smoker Frequency of Alcohol Use: None Type of Drug Use: None Infectious Disease Exam H&P - Constitutional Vitals: Vital Signs Temp Pulse Resp BP Pulse Ox 98.8 F 79 18 121/62 96 11/03/16 12:00 11/03/16 12:00 11/03/16 12:00 11/03/16 12:00 11/03/16 12:00 Intake and Output 11/02/16 11/03/16 11/03/16 23:59 07:59 15:59 Intake Total 1250 / 1250 1250 / 1250 Output Total 400 / 400 Balance 1250 / 1250 850 / 850 Intake: IV 1250 / 1250 1250 / 1250 Ns 1,000 ml @ 125 mls/hr 1000 / 1000 1000 / 1000 IV .Q8H RENATO Rx#: [id number] Vancomycin Inj 1,000 mg 250 / 250 250 / 250 In Ns 250 ml @ 250 mls/hr IV Q8H RENATO Rx#: [id number] Output: Urine 400 / 400 Other: Voiding Method Urinal Exam: General: Patient comfortable, completely nontoxic appearing HEENT: Mucous membranes pink and moist, anicteric acyanotic, ZARA, no oropharyngeal exudates Neck: Supple, no thyroid gland enlargement, no lymphadenopathy Respiratory system: Breath sounds vesicular, no crepitations or wheezes Cardiovascular: Normal S1 and S2, no murmurs appreciated Abdomen: Normal bowel sounds, soft nontender throughout, no organomegaly or mass Genitourinary: No suprapubic pain or bladder distention Extremities: no edema Skin: Circinate erythematous macular rash scattered over trunk and underarm areas extending to inner arms. Reports - Labs CBC & BMP: 11/01/16 05:18 11/01/16 05:18 - Reports Microbiology: 1 of 2 sets of blood cultures the day before admission positive for MRSE. Admission blood cultures negative today. - Diagnostic Findings Procedure: Ultrasound: report reviewed by me (SHAYAN negative for endocarditis)
--- NOTE | 2016-11-03 15:09 | Pulmonology Progress Note ---
Pulmonary - PN: Subj Interval history: Patient is a 65-year-old man that comes in with persistent fevers and has had a somewhat chronic cough. He has not been feeling well for quite some time. He came in because he was having fever again and in the office this past week we had a positive blood culture. He has a dry cough. He still had a temperature to 100.8 last night. His fever is down now when he feels a little better. His cough may be a little better and is not short of breath. He does feel like his backache is better and he may feel a little bit better. He still had some fever last night. Today he had a negative SHAYAN. He does have more of a rash today. His cough may be a little better. His chest x-ray is still hard to tell about his left lower lobe. We will go ahead and get a CT of his chest and abdomen. Exam (Progress Note) - Constitutional Vitals: Period Temp Pulse Resp BP Sys/Dixon Pulse Ox Last 24 Hr 98.6 F-102.7 F 79-91 18-20 121-140/61-81 94-97 Exam: General appearance: no acute distress, over weight, he looks comfortable and in no distress at present. He continues to have some fever at night. - Head Head exam: Present: normal inspection, normocephalic - Eye Eye exam: Present: EOMI. Absent: scleral icterus - ENT ENT exam: Present: normal exam, normal oropharynx, no sinus tenderness - Neck Neck exam: Absent: lymphadenopathy, thyromegaly - Respiratory Respiratory exam: Present: clear to auscultation bilaterally. He has good breath sounds bilaterally and he still moving air well. I do not hear any signs of consolidation. - Cardiovascular Cardiovascular exam: Present: regular rate and rhythm. No definite murmur. - GI/Abdominal GI/Abdominal exam: Present: soft. Absent: distended, organomegaly, tenderness - Extremities Exam Extremities exam: Absent: calf tenderness, edema - Neurological Exam Neurological exam: Present: alert, oriented X3, CN II-XII intact - Psychiatric Psychiatric exam: Present: anxious - Skin Skin exam: Present: He still has a blotchy red rash on his trunk and arms Results - Labs CBC & BMP: 11/01/16 05:18 11/01/16 05:18 - Diagnostic Findings Procedure: Chest x-ray: image reviewed by me, report reviewed by me (Chest x- ray has slight markings in the left lower lung that is about the same.) Assessment and Plan (1) Fever of unknown origin Status: Acute Assessment and plan: The patient has had a recurrent fever and is not totally clear of the source. His repeat cultures are negative so far. His SHAYAN is negative. He had only one positive culture for staph epi which is probably a contaminant. Will go ahead and get a CT of his chest and abdomen. Current Visit: Yes (2) Hypertension Status: Acute Assessment and plan: He does take lisinopril but I do not think this is causing a problem. Cardiology is stopping the lisinopril. Current Visit: Yes (3) Elevated sed rate Status: Acute Assessment and plan: He is having fever but his sed rate is better now. His C-reactive protein is elevated. Current Visit: Yes (4) Positive blood cultures Status: Acute Assessment and plan: He will have repeat blood cultures. So far the repeat cultures are negative. He still had a low-grade fever last night. His SHAYAN is negative. Current Visit: Yes
--- NOTE | 2016-11-03 15:17 | XRay Report ---
History: Fever of unknown origin. Cough Date: 11/03/2016 Study: Chest x-ray PA and lateral Comparison exam: October 31, 2016 The cardiac silhouette is not enlarged. There is no mediastinal mass. The pulmonary vasculature is not engorged. The lungs and pleural spaces are generally clear. There is mild thoracic spondylosis. Impression: No acute cardiopulmonary process. No significant interval change from the previous study PROCEDURE INTERPRETED AT [facility] DEPARTMENT OF RADIOLOGY Final Report Signed by: Dr. Radha Wilhelm
[2016-11-03] MEDS: DOXYCYCLINE HYCLATE 100 MG CAPSULE PO SCH ×2 (17:22→21:49)
[2016-11-03] MEDS: ACETAMINOPHEN 325 MG TABLET PO PRN (20:20)
[2016-11-03] MEDS: ENOXAPARIN 40 MG/0.4 ML SYRINGE SUBCUT SCH (20:52)
[2016-11-03] MEDS ORDERED: ACETAMINOPHEN 650 MG SUPP RECTAL PRN (22:42)
[2016-11-04] MEDS: ALBUTEROL/IPRATROPIUM 3 ML NEB RESP TX SCH ×3 (00:19→19:46)
[2016-11-04] MEDS: SODIUM CHLORIDE 0.9% 1,000 ML IV SCH ×3 (03:19→17:19)
[2016-11-04 06:22] LABS: Basophils % 0.2 % (0.0-0.8); Eosinophils # 0.1 10*3/uL (0.0-0.87); Eosinophils % 2.5 % (0.00-10.9); Hematocrit 38.3 VOL% (42.0-52.0); Hemoglobin 14.1 GM/DL (14.0-18.0); Immature Granulocytes % 0.6 %; Immature Granulocytes Absolute 0.03 #; Lymphocytes # 1.5 10*3/uL (1.4-4.0); Lymphocytes % 28.6 % (21.2-54.2); Mean Corpuscular HGB Conc 36.8 GM/DL (32-36); Mean Corpuscular Hemoglobin 33 PG (27-34); Mean Corpuscular Volume 88.7 FL (87-102); Mean Platelet Volume 9.6 FL (9.6-12.0); Monocytes # 0.4 10*3/uL (0.11-0.8); Monocytes % 8.4 % (1.7-12.7); Neutrophils % 59.7 % (38.7-73.9); Platelet Count 221 T/CUMM (130-400); Red Blood Count 4.32 MC/CUMM (3.8-5.5); Red Cell Distribution Width 12.7 % (9.3-17.3); White Blood Count 5.1 T/CUMM (4-12)
[2016-11-04 06:45] LABS: Calcium 8.5 MG/DL (8.5-10.1); Osmolality,Calculated 273.7 MOS/KG (273-304); Potassium 4.2 MMOL/L (3.5-5.1)
--- NOTE | 2016-11-04 07:32 | CT Report ---
Exam: CT chest with intravenous contrast Exam date: 11/04/2016 4:00 AM Clinical History: 65 years,Male, fever of unknown origin, cough Technique: Axial computed tomography images of the chest with intravenous contrast. The CT exam was performed using one or more of the following dose reduction techniques: Automated exposure control, adjustment of the mA and/or kV according to patient size, or use of iterative reconstruction technique. Contrast: 100 mL of Omnipaque 350 administered intravenously. Comparison: No relevant comparisons Findings: Lungs: No mass. No consolidation. Pleural spaces: No pneumothorax. No significant effusion Heart: No cardiomegaly. No pericardial effusion Mediastinum: Intact. Normal trachea Bones/joints: Intact. No acute fracture. No dislocation. Soft tissues: Unremarkable Vasculature: Mild atheromatous plaquing Lymph nodes: Mildly enlarged mediastinal and hilar nodes, nonspecific Impression: 1. Mildly prominent mediastinal and hilar lymph nodes, nonspecific and likely reactive. Exam: CT abdomen and pelvis with intravenous contrast Exam date: 11/04/2016 4:00 AM Clinical History: 65-year-old,Male, fever of unknown origin with progressing abdominal pain Technique: Axial computed tomography images of the abdomen and pelvis with intravenous contrast. All CT scans at this facility use one or more dose reduction techniques. Automated exposure control, MA/KV adjustment per patient size (including targeted exam Square dose is matched to indication) or iterative reconstruction technique Contrast: 100 mL of Omnipaque 350 administered intravenously Comparison: No relevant prior studies Findings: Lower thorax: No acute pathologic findings at the lung bases Abdomen: Liver: Diffusely hypoattenuating Gallbladder and bile ducts: Prior cholecystectomy. Pancreas: Pancreas is normal. Spleen: Spleen is normal. Adrenals: No adrenal mass. Kidneys and ureters: Small bilateral renal cyst. Nonobstructing left inferior pole calculus is noted. No hydronephrosis. Symmetric enhancement Stomach and bowel: Colonic diverticulosis without diverticulitis. No large or small bowel distention. Appendix: Non clearly visualized. No secondary findings to suggest appendicitis. Pelvis: Bladder: Unremarkable Reproductive: Prostate gland is slightly prominent. Abdomen and pelvis: Intraperitoneal space: No pneumoperitoneum. No significant intraperitoneal fluid Bones/joints: No acute osseous abnormality. Spondylitic changes within the lower lumbar spine. Soft tissues: No mass Vasculature: No aortic aneurysm Lymph nodes: No adenopathy Impression: 1. Diverticulosis coli 2. Left nephrolithiasis 3. Other findings as discussed above PROCEDURE INTERPRETED AT [facility] DEPARTMENT OF RADIOLOGY Final Report Signed by: Ochoa Nair
[2016-11-04] MEDS: PANTOPRAZOLE 40 MG TABLET PO SCH (08:37)
[2016-11-04] MEDS: DOXYCYCLINE HYCLATE 100 MG CAPSULE PO SCH ×2 (08:37→20:52)
[2016-11-04] MEDS: LISINOPRIL 10 MG TABLET PO SCH (08:38)
--- NOTE | 2016-11-04 09:27 | Hospitalist Progress Note ---
Assessment and Plan (1) Bacteremia Status: Acute Assessment and plan: Blood cultures have previously demonstrated gram-positive cocci. 4 sets of blood cultures in the hospital have all been negative. Infectious diseases has discontinued the vancomycin. Current Visit: Yes (2) Fever of unknown origin Status: Acute Assessment and plan: Transesophageal echocardiogram demonstrated no significant abnormalities. CT scan of the abdomen and pelvis have demonstrated no significant abnormalities. He is presently receiving oral doxycycline. As recommended by infectious diseases, I will consult hematology. Current Visit: Yes (3) Drug-induced skin rash Status: Acute Assessment and plan: He developed the rash after starting therapy with Augmentin. He has no previously known drug allergies. It is most likely that the rash is due to an allergy to Augmentin. The rash is resolving. Current Visit: Yes Hospitalist: Subjective Interval history: Mr. Cho spent an uneventful night. Infectious diseases changed his antibiotics, discontinuing vancomycin and starting doxycycline. Dr. Rolanda Sousa has recommended a rheumatology consult. Mr. Cho underwent a CT scan of the abdomen and chest today demonstrating no significant abnormalities. Exam - Constitutional Vitals: Period Temp Pulse Resp BP Sys/Dixon Pulse Ox Last 24 Hr 97.3 F-102.2 F 79-91 16-22 121-141/62-70 91-98 General appearance: normal weight, no acute distress - Head Head exam: Present: normal inspection - Neck Neck exam: Present: normal inspection - Respiratory Respiratory exam: Present: clear to auscultation bilaterally - Cardiovascular Cardiovascular exam: Present: regular rate and rhythm - GI/Abdominal GI/Abdominal exam: Present: normal bowel sounds, soft, other (No palpable masses or hepatosplenomegaly.) - Extremities Exam Extremities exam: Present: normal inspection - Skin Skin exam: Present: normal color, warm, intact Results - Labs CBC & BMP: 11/04/16 05:58 11/04/16 05:58
--- NOTE | 2016-11-04 09:49 | Anesthesia Post-Op ---
Anesthesia Post OP - Post Ansesthetic Evaluation Patient seen in post op: Yes Resp: within normal limits CV: within normal limits Mental: within normal limits Temp: within normal limits [id number]: within normal limits Nausea and Vomiting: within normal limits Pain: within normal limits
--- NOTE | 2016-11-04 13:09 | Rheumatology Consultation ---
Assessment and Plan - Time spent with patient Time spent with patient: Greater than 30 minutes (1) Hip joint stiffness, bilateral Status: Acute Current Visit: Yes (2) Fever of unknown origin Status: Acute Assessment and plan: Ms. 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 Other autoimmune connective tissue disease conditions like giant cell arteritis, polymyalgia rheumatica are suspected. Lymphoproliferative disorder may present with initial symptoms like patient's current presentation. His current symptoms are less likely related to adult onset stills disease. *Order CPK, aldolase, LDH, serum ferritin, serum angiotensin-converting enzyme *Order serum protein electrophoresis and urine pleural protein electrophoresis, light chain, immune fixation analysis *Follow-up patient blood workup and decide further management Current Visit: Yes (3) Elevated sed rate Status: Acute Current Visit: Yes History of Present Illness - Data of Consult Consult date: 11/04/16 - Consult Narrative Reason for consult: Fever and skin rash History of present illness: Mr. Cho is a 65 year old male is admitted for fever spikes for last few days and then a skin rash developed during hospital stay. According patient he was in usual state of health until a few weeks ago when he noticed fever spikes of 100-101F, associated with stiffness at both shoulders and hips, worse in the morning, resulted in difficulty getting out of bed or chairs sometime and trouble walking. He denies joint pain symptoms at both hands or feet, headache , blurry vision, change in vision, jaw claudicationm,cough sore throat, dyspnea , chest pain, night sweats, weight loss, abdominal pain, diarrhea, blood in the stool or urinary tract infection. During hospitalization he was started on Augmentin and since then patient developed rash which involve abdominal wall chest and the skin around the axilla, which is flared to rest rash with some pruritus but without any discharge. CC: Raudel Gamez - Home Medications and Allergies Home Medications: Home Medications Medication Instructions Recorded Confirmed Type Esomeprazole Magnesium [Nexium] 40 mg PO QAM 10/31/16 10/31/16 History Lisinopril [Prinivil] 10 mg PO QAM 10/31/16 10/31/16 History Allergies/Adverse Reactions: Allergies Allergy/AdvReac Type Severity Reaction Status Date / Time morphine AdvReac Confusion Verified 10/31/16 15:38 - Constitutional Constitutional: Present: chills. Absent: headache(s), night sweats, weakness, weight loss - EENT Eyes: Absent: blurry vision, loss of vision Ears: Absent: decreased hearing, ear discharge, ear pain Nose, mouth and throat: Absent: epistaxis, hoarseness, lip swelling, nasal congestion, sore throat, throat swelling - Cardiovascular Cardiovascular: Absent: chest pain at rest, dyspnea on exertion, radiating jaw, neck or arm pain, lightheadedness - Respiratory Respiratory: Absent: cough, dyspnea, hemoptysis, dyspnea on exertion - Gastrointestinal Gastrointestinal: Absent: abdominal pain, diarrhea, heartburn, loose stools - Genitourinary Genitourinary: Absent: dysuria, flank pain - Musculoskeletal Musculoskeletal: Absent: arthralgias, back pain, joint swelling - Neurological Neurological: Absent: dizziness, focal weakness, memory loss - Hematologic/Lymphatic Hematologic/Lymphatic: Absent: easy bleeding, easy bruising Medical,Surgical,& Family Hx - Medical History Cardio: History of: Hypertension Musculoskeletal: History of: Back/Neck Problems (ruptured disc L4/L5) - Surgical History Cardiac Surgeries: Sugical HX of: Cardiac Catheterization Abdominal Surgeries: Surgical HX of: Appendectomy, Cholecystectomy Reproductive Surgeries: Patient denies;: Genitourinary Surgery Orthopedic Surgeries: Surgical HX of;: Orthopedic Surgery (Fawad Shoulder, right knee, carpal tunnel) - Family History Family History: Reports;: Family Cancer (uncles esophageal ca), Family Diabetes (mom), Family Heart Disease, Family Hypertension (siblings) Denies;: Family Anesthesia Reaction, Family Hematology, Family Psychiatric Problems, Family Stroke, Additional Family History - Social History Smoking Status: Never smoker Frequency of Alcohol Use: None Type of Drug Use: None Exam Rheumatology - Constitutional Vitals: Vital Signs Temp Pulse Resp BP Pulse Ox 11/04/16 07:58 97.5 F L 79 18 141/65 98 11/04/16 06:00 22 11/04/16 04:00 98.4 F 91 H 20 139/70 96 11/04/16 02:00 18 11/04/16 01:00 18 11/04/16 00:00 97.3 F L 88 18 132/67 94 L 11/03/16 22:20 18 11/03/16 21:20 97.8 F 11/03/16 20:20 102 F H 11/03/16 20:00 102.2 F H 87 18 138/69 93 L 11/03/16 16:00 99.7 F H 81 16 128/69 91 L General appearance: no acute distress - Head Head exam: Present: normal inspection, atraumatic - Eye Eye exam: Present: EOMI Pupils: Present: ZARA, normal accommodation - ENT ENT exam: Present: normal exam, normal external ear exam, normal oropharynx, other (Tender submandiular glands bilateral) - Neck Neck exam: Present: normal inspection. Absent: lymphadenopathy - Respiratory Respiratory exam: Present: clear to auscultation bilaterally. Absent: rales, rhonchi, wheezes - Cardiovascular Cardiovascular exam: Present: regular rate and rhythm. Absent: diastolic murmur , JVD, tachycardia - GI/Abdominal GI/Abdominal exam: Present: normal bowel sounds. Absent: ascites, distended, organomegaly, tenderness, rebound - Extremities Exam Extremities exam: Present: normal inspection, full ROM - Back Exam Back exam: Present: normal inspection - Neurological Exam Neurological exam: Present: alert, oriented X3, CN II-XII intact, motor sensory deficit, reflexes normal - Psychiatric Psychiatric exam: Present: normal affect, normal mood - Skin Skin exam: Present: normal color, rash - Lymphatic Lymphatic: Absent: aricular lymphadenopathy, axillary lymphadenopathy, supraclavicular lymphadenopathy (diffuse erythematous flat to raised non blanching rash of variable sizes notices around axilla, anterior abdominal wall and lateral abdominal wall) Results - Labs CBC & BMP: 11/04/16 05:58 11/04/16 05:58
--- NOTE | 2016-11-04 13:10 | Pulmonology Progress Note ---
Pulmonary - PN: Subj Interval history: Patient is a 65-year-old man that comes in with persistent fevers and has had a somewhat chronic cough. He has not been feeling well for quite some time. He came in because he was having fever again and in the office this past week we had a positive blood culture. He has a dry cough. He still had a temperature to 100.8 last night. His fever is down now when he feels a little better. His cough may be a little better and is not short of breath. He does feel like his backache is better and he may feel a little bit better. He still had some fever last night. Yesterday he had a negative SHAYAN. Today he has CT of his abdomen and chest and does have some left kidney stones. Otherwise everything looks okay. He has some minimal mediastinal adenopathy that is not very impressive. He did have a little fever last night but is down now. His rash is looking better. Overall he is feeling better. He will be seen by rheumatology. Exam (Progress Note) - Constitutional Vitals: Period Temp Pulse Resp BP Sys/Dixon Pulse Ox Last 24 Hr 97.3 F-102.2 F 79-91 16-22 128-141/65-70 91-98 Exam: General appearance: no acute distress, over weight, he looks comfortable and in no distress at present. He overall feels a little better today. - Head Head exam: Present: normal inspection, normocephalic - Eye Eye exam: Present: EOMI. Absent: scleral icterus - ENT ENT exam: Present: normal exam, normal oropharynx, no sinus tenderness - Neck Neck exam: Absent: lymphadenopathy, thyromegaly - Respiratory Respiratory exam: Present: clear to auscultation bilaterally. He has good breath sounds bilaterally and he still moving air well. I do not hear any signs of consolidation. - Cardiovascular Cardiovascular exam: Present: regular rate and rhythm. No definite murmur. - GI/Abdominal GI/Abdominal exam: Present: soft. Absent: distended, organomegaly, tenderness - Extremities Exam Extremities exam: Absent: calf tenderness, edema, no signs of phlebitis - Neurological Exam Neurological exam: Present: alert, oriented X3, CN II-XII intact, no focal deficit - Psychiatric Psychiatric exam: Present: anxious - Skin Skin exam: Present: He still has a blotchy red rash on his trunk and arms. The rash looks better today. Results - Labs CBC & BMP: 11/04/16 05:58 11/04/16 05:58 - Diagnostic Findings Procedure: CT Abdomen and Pelvis: report reviewed by me (He has some left kidney stones and diverticular disease.), CT - chest: image reviewed by me, report reviewed by me (Has some minimal adenopathy but otherwise unremarkable.) Assessment and Plan (1) Fever of unknown origin Status: Acute Assessment and plan: The patient has had a recurrent fever and is not totally clear of the source. His repeat cultures are negative so far. His SHAYAN is negative. He has had multiple negative blood cultures. The CT of his chest and abdomen are not that remarkable. He does have some kidney stones. He will be seen by rheumatology today. Current Visit: Yes (2) Hypertension Status: Acute Assessment and plan: He does take lisinopril but I do not think this is causing a problem. Cardiology is stopping the lisinopril. Current Visit: Yes (3) Elevated sed rate Status: Acute Assessment and plan: He is having fever but his sed rate is better now. His C-reactive protein is elevated. Current Visit: Yes (4) Positive blood cultures Status: Acute Assessment and plan: He will have repeat blood cultures. So far the repeat cultures are negative. He still had a low-grade fever last night. His SHAYAN is negative. At present he looks like he is doing a little better. There is no definite signs of infection at present. He may actually be better on doxycycline however. Current Visit: Yes
--- NOTE | 2016-11-04 15:16 | Infectious Disease Progress ---
Assessment and Plan (1) Drug-induced skin rash Status: Acute Current Visit: Yes (2) Fever of unknown origin Status: Acute Assessment and plan: This fever has been present for 5 weeks and the patient is nontoxic appearing. I am suspicious for noninfectious causes such as rheumatologic conditions/ collagen vascular diseases especially given his joint pains. Patient was bitten by tick 3 months ago but would not expect infection acquired from that to be causing fever at this time. He thinks he has defervesced because of the doxycycline started last evening however it is too early to tell. Recommend agents: 1. Continue doxycycline 2. Follow-up on rickettsial serologies 3. We will see what rheumatology thinks Discussed with patient's at bedside Current Visit: Yes (3) Hypertension Status: Acute Current Visit: Yes (4) Positive blood cultures Status: Acute Assessment and plan: MRSE in 1 of 2 sets of blood cultures. This is indicative of contamination. His repeat blood cultures are negative so far, drawn before he started vancomycin therapy. Current Visit: Yes Infectious Disease - PN: Subj Interval history: Patient seen and examined this morning. He spiked 102.2 last night but has been afebrile since. He feels a little better today, rash is fading. He is eating well. No other complaints. Infectious Disease Exam (PN) - Constitutional Vitals: Temp Pulse Resp BP Pulse Ox 97.6 F 84 20 148/78 96 11/04/16 12:00 11/04/16 12:00 11/04/16 12:00 11/04/16 12:00 11/04/16 12:00 General appearance: normal weight, no acute distress Exam: General appearance: no acute distress, remains nontoxic appearing - Eye Eye exam: Present: EOMI. no icterus Pupils: Present: ZARA - ENT ENT exam: no oropharyhgeal exudates - Neck Neck exam: supple - Respiratory Respiratory exam: vesicular BS, no crepitations or wheezes - Cardiovascular Cardiovascular exam: regular rate and rhythm, no murmurs - GI/Abdominal GI/Abdominal exam: normal bowel sounds, soft, non-tender, no organomegaly or mass - Extremities Exam Extremities exam: no edema - Skin Skin exam: Erythematous circinate macular rash described yesterday is less prominent, reduced erythema Results - Labs CBC & BMP: 11/04/16 05:58 11/04/16 05:58 Lab Results: I have reviewed the past 24 hour labs
[2016-11-04 15:55] LABS: Ferritin 1012.7 ng/ml (26-388); Total Protein 6.5 G/DL (6.4-8.3)
[2016-11-04] MEDS: ENOXAPARIN 40 MG/0.4 ML SYRINGE SUBCUT SCH (20:52)
[2016-11-04] MEDS: ACETAMINOPHEN 325 MG TABLET PO PRN (20:52)
[2016-11-05] MEDS: ALBUTEROL/IPRATROPIUM 3 ML NEB RESP TX SCH ×2 (01:10→07:16)
[2016-11-05] MEDS: SODIUM CHLORIDE 0.9% 1,000 ML IV SCH ×2 (02:25→13:16)
[2016-11-05 05:59] LABS: Immunoglobulin A (Chem) 342 MG/DL (70-400); Immunoglobulin G (Chem) 1190 MG/DL (700-1600); Immunoglobulin M (Chem) 60 MG/DL (40-230); Total Protein (Chem) 6.5 G/DL (6.4-8.3)
[2016-11-05 06:18] LABS: Random Urine Protein (Bench) 10 MG/DL (<11.9)
[2016-11-05] MEDS: LISINOPRIL 10 MG TABLET PO SCH (09:25)
[2016-11-05] MEDS: PANTOPRAZOLE 40 MG TABLET PO SCH (09:25)
[2016-11-05] MEDS: DOXYCYCLINE HYCLATE 100 MG CAPSULE PO SCH (09:25)
[2016-11-05 09:59] LABS: Albumin (SPE) 3.2 G/DL (3.2-5.3); Albumin (SPE) Rel % 48.6 %; Alpha 1 (SPE) 0.3 G/DL (0.1-0.4); Alpha 1 (SPE) Rel % 5.3 %; Alpha 2 (SPE) Rel % 15.2 %; Beta (SPE) 0.8 G/DL (0.5-1.1); Beta (SPE) Rel % 12.5 %; Gamma (SPE) 1.2 G/DL (0.7-1.7); Gamma (SPE) Rel % 18.4 %
--- NOTE | 2016-11-05 11:00 | Hospitalist Progress Note ---
Assessment and Plan (1) Bacteremia Status: Acute Assessment and plan: Blood cultures have previously demonstrated gram-positive cocci. 4 sets of blood cultures in the hospital have all been negative. Infectious diseases has discontinued the vancomycin and doxycycline. Current Visit: Yes (2) Fever of unknown origin Status: Acute Assessment and plan: As noted above, his antibiotics have been discontinued. He was seen in consultation yesterday by rheumatology. He is to undergo a bronchoscopy and biopsy tomorrow. Current Visit: Yes (3) Drug-induced skin rash Status: Acute Assessment and plan: He developed the rash after starting therapy with Augmentin. He has no previously known drug allergies. It is most likely that the rash is due to an allergy to Augmentin. The rash is resolving. Current Visit: Yes Hospitalist: Subjective Interval history: There has been no significant change. He has been seen in follow-up and in consultation by pulmonary, rheumatology, and infectious disease. Antibiotics have been discontinued. He is to undergo bronchoscopy tomorrow. He should be ready for discharge following the bronchoscopy. Exam - Constitutional Vitals: Period Temp Pulse Resp BP Sys/Dixon Pulse Ox Last 24 Hr 97.4 F-101.6 F 71-98 18-20 128-156/62-82 93-98 General appearance: no acute distress - Head Head exam: Present: normal inspection - Neck Neck exam: Present: normal inspection - Respiratory Respiratory exam: Present: clear to auscultation bilaterally - Cardiovascular Cardiovascular exam: Present: regular rate and rhythm - GI/Abdominal GI/Abdominal exam: Present: normal bowel sounds, soft, other (Nontender with no palpable masses or hepatosplenomegaly.) - Extremities Exam Extremities exam: Present: normal inspection - Skin Skin exam: Present: normal color, warm, intact Results - Labs CBC & BMP: 11/04/16 05:58 11/04/16 05:58
--- NOTE | 2016-11-05 11:40 | Infectious Disease Progress ---
Assessment and Plan (1) Drug-induced skin rash Status: Acute Current Visit: Yes (2) Fever of unknown origin Status: Acute Assessment and plan: It seems this is most likely due to some collagen vascular disease. Per rheumatology evaluation sarcoidosis is possible versus still's disease or other collagen vascular disease. Evaluation is pending. Appreciate their input. Patient also for bronchoscopy per Dr. Johnson. Recommend agents: Given persisting fever on doxycycline I am going to discontinue doxycycline. Continue evaluation by rheumatology and pulmonary. Incidentally patient reports that he was dealing with some moldy pea seedlings 3 months ago on inhaled a lot of dust. Was concerned about possible fungal lung infection. With bronchoscopy tomorrow he can have sample sent for fungal smear and culture along with other routine tests. I will sign off now. Call again as needed. Discussed with patient's at bedside Current Visit: Yes (3) Hypertension Status: Acute Current Visit: Yes (4) Positive blood cultures Status: Acute Assessment and plan: MRSE in 1 of 2 sets of blood cultures. This is indicative of contamination. His repeat blood cultures are negative so far, drawn before he started vancomycin therapy. Current Visit: Yes Infectious Disease - PN: Subj Interval history: Patient feeling fairly okay, once again he had fever last night over 101. His rash gets more prominent when he gets the fever. The fever tends to be more in the evening. He has intermittent cough mostly nonproductive. He was seen by rheumatology and it seems that the sarcoidosis is a possibility given he has mediastinal lymphadenopathy. Also considering still's disease given his rash and very elevated ferritin. Infectious Disease Exam (PN) - Constitutional Vitals: Temp Pulse Resp BP Pulse Ox 97.4 F L 71 18 136/69 93 L 11/05/16 07:45 11/05/16 07:45 11/05/16 07:45 11/05/16 07:45 11/05/16 07:45 General appearance: no acute distress Exam: General appearance: no acute distress, remains nontoxic appearing - Eye Eye exam: Present: EOMI. no icterus Pupils: Present: ZARA - ENT ENT exam: no oral exudates - Neck Neck exam: supple - Respiratory Respiratory exam: vesicular BS, no crepitations or wheezes - Cardiovascular Cardiovascular exam: regular rate and rhythm, no murmurs - GI/Abdominal GI/Abdominal exam: normal bowel sounds, soft, non-tender, no organomegaly or mass - Extremities Exam Extremities exam: no edema - Skin Skin exam: Erythematous circinate macular rash as before, less prominent Results - Labs CBC & BMP: 11/04/16 05:58 11/04/16 05:58 Lab Results: I have reviewed the past 24 hour labs (Lyme serology negative)
--- NOTE | 2016-11-05 12:57 | Pulmonology Progress Note ---
Pulmonary - PN: Subj Interval history: Patient is a 65-year-old man that comes in with persistent fevers and has had a somewhat chronic cough. He has not been feeling well for quite some time. He came in because he was having fever again and in the office this past week we had a positive blood culture. He has a dry cough. He still had a temperature to 100.8 last night. His fever is down now when he feels a little better. His cough may be a little better and is not short of breath. He does feel like his backache is better and he may feel a little bit better. He still had some fever last night. He says he is feeling okay today but still has his cough. He is still having a low-grade fever. Dr. Beltran feels like this may be sarcoid. The mediastinal adenopathy is not very impressive but he actually may have tiny reticular nodular infiltrate on his CT. He did feel much better after short course of prednisone and his symptoms are coming back now. We will go ahead and plan a bronchoscope and transbronchial biopsies tomorrow. Exam (Progress Note) - Constitutional Vitals: Period Temp Pulse Resp BP Sys/Dixon Pulse Ox Last 24 Hr 97.4 F-101.6 F 71-98 18-20 120-156/62-82 93-98 Exam: General appearance: no acute distress, over weight, he looks comfortable and in no distress at present. He overall feels a little better today. He is still having a low-grade fever at night - Head Head exam: Present: normal inspection, normocephalic - Eye Eye exam: Present: EOMI. Absent: scleral icterus - ENT ENT exam: Present: normal exam, normal oropharynx, no sinus tenderness - Neck Neck exam: Absent: lymphadenopathy, thyromegaly - Respiratory Respiratory exam: Present: clear to auscultation bilaterally. He has good breath sounds bilaterally and he still moving air well. I do not hear any signs of consolidation. I do not hear any definite crackles. - Cardiovascular Cardiovascular exam: Present: regular rate and rhythm. No definite murmur. - GI/Abdominal GI/Abdominal exam: Present: soft. Absent: distended, organomegaly, tenderness - Extremities Exam Extremities exam: Absent: calf tenderness, edema, no signs of phlebitis - Neurological Exam Neurological exam: Present: alert, oriented X3, CN II-XII intact, no focal deficit - Psychiatric Psychiatric exam: Present: anxious - Skin Skin exam: Present: He still has a blotchy red rash on his trunk and arms. The rash looks better today. Results - Labs CBC & BMP: 11/04/16 05:58 11/04/16 05:58 Assessment and Plan (1) Fever of unknown origin Status: Acute Assessment and plan: The patient has had a recurrent fever and is not totally clear of the source. His repeat cultures are negative so far. His SHAYAN is negative. He has had multiple negative blood cultures. The CT of his chest and abdomen are not that remarkable. He does have some minimal adenopathy. He does have some kidney stones. The possibility of sarcoid has been raised and this would certainly fit with his symptoms. If it is sarcoid, there is a good chance we will get noncaseating granulomas on transbronchial biopsies. Will plan a bronchoscope tomorrow and get some lung tissue. Current Visit: Yes (2) Hypertension Status: Acute Assessment and plan: He does take lisinopril but I do not think this is causing a problem. Cardiology is stopping the lisinopril. Current Visit: Yes (3) Elevated sed rate Status: Acute Assessment and plan: He is having fever but his sed rate is better now. His C-reactive protein is elevated. Current Visit: Yes (4) Positive blood cultures Status: Acute Assessment and plan: He will have repeat blood cultures. So far the repeat cultures are negative. He still had a low-grade fever last night. His SHAYAN is negative. At present he looks like he is doing a little better. There is no definite signs of infection at present. He may actually be better on doxycycline however. Current Visit: Yes
[2016-11-05] MEDS: ACETAMINOPHEN 325 MG TABLET PO PRN (17:18)
[2016-11-06] MEDS: SODIUM CHLORIDE 0.9% 1,000 ML IV SCH ×2 (01:06→10:21)
[2016-11-06] MEDS ORDERED: GLYCOPYRROLATE 0.4 MG/2 ML VIAL IM ONE (07:30)
[2016-11-06] MEDS ORDERED: PROMETHAZINE 25 MG/1 ML VIAL IM ONE (07:30)
[2016-11-06] MEDS ORDERED: MEPERIDINE 50 MG/1 ML VIAL IM ONE (07:30)
[2016-11-06] MEDS ORDERED: MIDAZOLAM 2 MG/2 ML VIAL ONE (07:41)
[2016-11-06] MEDS ORDERED: LIDOCAINE 2% VISCOUS 100 ML BOTTLE SWISH/SPIT ONE (08:00)
[2016-11-06] MEDS ORDERED: MIDAZOLAM 2 MG/2 ML VIAL IV ONE (08:00)
[2016-11-06] MEDS ORDERED: LIDOCAINE 1% 20 ML VIAL MISC INJ ONE (08:00)
[2016-11-06] MEDS ORDERED: LIDOCAINE 2% 20 ML VIAL RESP TX ONE (08:00)
--- NOTE | 2016-11-06 08:25 | Pulmonology Progress Note ---
Pulmonary - PN: Subj Interval history: Patient is a 65-year-old man that comes in with persistent fevers and has had a somewhat chronic cough. He has not been feeling well for quite some time. He came in because he was having fever again and in the office this past week we had a positive blood culture. He has a dry cough. He still had a temperature to 100.8 last night. His fever is down now when he feels a little better. His cough may be a little better and is not short of breath. He does feel like his backache is better and he may feel a little bit better. He still had some fever last night. He says he is feeling okay today but still has his cough. He is still having a low-grade fever. Dr. Beltran feels like this may be sarcoid. The mediastinal adenopathy is not very impressive but he actually may have tiny reticular nodular infiltrate on his CT. He did feel much better after short course of prednisone and his symptoms are coming back now. He had a fairly good night but he still has a low-grade fever. He still has a mild cough. Otherwise his breathing is doing okay. We will proceed with a bronchoscope today. Exam (Progress Note) - Constitutional Vitals: Period Temp Pulse Resp BP Sys/Dixon Pulse Ox Last 24 Hr 97.5 F-100.5 F 18-100 12-20 120-169/65-94 94-98 Exam: General appearance: no acute distress, over weight, he looks comfortable and in no distress at present. He seems to be breathing comfortably today. - Head Head exam: Present: normal inspection, normocephalic - Eye Eye exam: Present: EOMI. Absent: scleral icterus - ENT ENT exam: Present: normal exam, normal oropharynx, no sinus tenderness - Neck Neck exam: Absent: lymphadenopathy, thyromegaly - Respiratory Respiratory exam: Present: clear to auscultation bilaterally. He has good breath sounds bilaterally and he still moving air well. I do not hear any signs of consolidation. I do not hear any definite crackles. - Cardiovascular Cardiovascular exam: Present: regular rate and rhythm. No definite murmur. - GI/Abdominal GI/Abdominal exam: Present: soft. Absent: distended, organomegaly, tenderness - Extremities Exam Extremities exam: Absent: calf tenderness, edema, no signs of phlebitis - Neurological Exam Neurological exam: Present: alert, oriented X3, CN II-XII intact, no focal deficit - Psychiatric Psychiatric exam: Present: He is resting better. - Skin Skin exam: Present: He still has a blotchy red rash on his trunk and arms. The rash looks better today. Results - Labs CBC & BMP: 11/04/16 05:58 11/04/16 05:58 Assessment and Plan (1) Fever of unknown origin Status: Acute Assessment and plan: The patient has had a recurrent fever and is not totally clear of the source. His repeat cultures are negative so far. His SHAYAN is negative. He has had multiple negative blood cultures. The CT of his chest and abdomen are not that remarkable. He does have some minimal adenopathy. He does have some kidney stones. The possibility of sarcoid has been raised and this would certainly fit with his symptoms. If it is sarcoid, there is a good chance we will get noncaseating granulomas on transbronchial biopsies. Will proceed with the bronchoscope today. Current Visit: Yes (2) Hypertension Status: Acute Assessment and plan: He does take lisinopril but I do not think this is causing a problem. Cardiology is stopping the lisinopril. Current Visit: Yes (3) Elevated sed rate Status: Acute Assessment and plan: He is having fever but his sed rate is better now. His C-reactive protein is elevated. Current Visit: Yes (4) Positive blood cultures Status: Acute Assessment and plan: He will have repeat blood cultures. So far the repeat cultures are negative. He still had a low-grade fever last night. His SHAYAN is negative. At present he looks like he is doing a little better. There is no definite signs of infection at present. We will go ahead with a fiberoptic bronchoscope and transbronchial biopsies today. Current Visit: Yes
--- NOTE | 2016-11-06 08:29 | Operative Note ---
Date of procedure: 11/06/16 Pre-op diagnosis: Persistent fever and cough, rule out sarcoid Post-op diagnosis: same Procedure: The patient has had a persistent fever and cough and has some mild mediastinal adenopathy. He has a rash and arthralgias and the possibility of sarcoid has been raised. He will have a bronchoscope with transbronchial biopsy to look for noncaseating granulomas. Timeout was performed to identify the patient. The patient is in the bronchoscopy lab. Preop: Demerol 50 mg, Phenergan 25 mg, Robinul 0.1 mg IM. Anesthesia: Versed 4 mg IVP, topical lidocaine. Procedure: The fiberoptic bronchoscope was passed transnasally through the vocal cords into the lungs. The bronchopulmonary segments were identified and specimens were obtained. Findings: The vocal cords, trachea, and bladimir are unremarkable. The airways have some mild redness but no cobblestoning. There are no endobronchial lesions seen. The right upper lobe, right middle lobe, and right lower lobe are all open. The left upper lobe, lingula, and left lower lobe are all open. Under fluoroscopy, washings, brushings, and transbronchial biopsies were taken in the lingula and left lower lobe. These were sent for histology, cytology, and cultures. There is some minor bleeding but this was controlled with saline. He tolerated the procedure well without any problems Impression: Persistent cough and fever possibly some minimal interstitial changes on CT. We will try to rule out sarcoid. Plan: We will await biopsies before deciding further treatment. Anesthesia: conscious sedation Surgeon / Physician: Rian Johnson Estimated blood loss: minimal Specimens: other (Washings, brushings, transbronchial biopsies were sent for cultures and histology.) Condition: stable Disposition: floor Results - Labs CBC & BMP: 11/04/16 05:58 11/04/16 05:58 Discharge Plan - Discharge Medications No Action Lisinopril [Prinivil] 10 mg PO QAM Esomeprazole Magnesium [Nexium] 40 mg PO QAM - Follow Up or Referral - Forms/Instructions
--- NOTE | 2016-11-06 09:00 | Discharge Summary ---
Hospital Course - Hospital Course Hospital Course: Mr. Cho is a 65 year old white male that is a former smoker and has a history of hypertension but have been quite active and healthy. I first saw him in the office in August when he was having a recurrent persistent cough and was actually having some reflux symptoms and trouble swallowing. His exam was unremarkable and his PFTs look fairly normal. However because of his persistent coughing symptoms we put him on Nexium and gave him a short course of prednisone along with a Breo inhaler. He says his cough cleared up quickly and he felt much better. He really did not use inhaler very much. He said he felt much better on October 15 and we actually told him to return as needed. He came back on October 28 stating that he felt bad again. He said he had been having fevers to 101 and 102 range and having some vague chest pain and aches. He just did not feel like doing much. Once again his chest x-ray was unchanged. He did not look that bad on exam. We did blood cultures along with a CBC and sed rate. His CBC was unremarkable but his sed rate was 70. His blood cultures had come back positive for gram-positive cocci. He was started on Augmentin and now he has a rash. He still feels terrible he says. He still has a dry cough. He is not terribly short of breath. He is not complaining of sinus congestion. He says he is having fever and chills. Mr. Cho was admitted to the hospital with the above complaints. He was seen in consultation by Dr. Johnson of pulmonary, Dr. Sumner of cardiology, Dr. Leroy of infectious disease, and Dr. Elena Singleton of rheumatology. He was treated with intravenous and oral antibiotics in the hospital with no change in his status. He underwent a bronchoscopy on 11/06/[address] Johnson with performance of biopsies to rule out sarcoidosis. He tolerated the procedure without complications. At the time of his discharge he was comfortable. Diagnosis - Discharge Diagnosis (1) Bacteremia Status: Acute (2) Fever of unknown origin Status: Acute (3) Drug-induced skin rash Status: Acute Discharge Plan - Discharge Data Disposition: Disch To Home/Self Care Condition at Discharge: Stable Discharge Diet: advance to your usual diet Activity: resume usual activities as tolerated - Discharge Medications Continue Lisinopril [Prinivil] 10 mg PO QAM Esomeprazole Magnesium [Nexium] 40 mg PO QAM - Follow Up or Referral - Forms/Instructions Exam - Constitutional Vitals: Period Temp Pulse Resp BP Sys/Dixon Pulse Ox Last 24 Hr 97.5 F-100.5 F 18-105 12-21 120-169/65-94 94-98 Discharge Results Procedures and tests throughout hospitalization: Pending Orders 10/31/16 20:56 Rickettsial Disease Panel Routine 11/02/16 21:52 Blood Culture Stat 11/04/16 13:33 Aldolase Stat Angiotensin Converting Enzyme Stat Antistrep-O Titer,Serum Stat Cyclic Citrull Peptide Ab Stat Immunofixation Electro Serum Stat Immunofixation Electro Urine Stat Immunoglob Free Light Chains Stat Serum Protein Electrophoresis Stat 11/06/16 08:29 AFB Culture/Smears Routine Bronchial Washings C & Gram St Routine Cytology Request Routine 11/06/16 08:30 Bronchial Brushings Cult, GS Routine Fungal Culture w/ Prep Routine Labs on day of discharge: Labs from last 24 hours 11/04/16 13:33 Ur Random Albumin 10.0 Ur Random Albumin % 100.0 Urine PEP Interpret Pro Electrophoresis Int Albumin (PEP) 3.2 Albumin (relative) 48.6 Gulir-9-Mczjivku 0.3 Uuxry-7-Davyarbz rel 5.3 Coxgb-7-Zcuovfng 1.0 Sgcns-3-Mugrbtzb rel 15.2 Amur-3-Sehehrvi 0.8 Kzyf-9-Kzhnoioz rel 12.5 Gamma Globulins 1.2 Gamma Globulins rel 18.4 JANETH Interpretation Urine JANETH Interpret Preliminary micro results at discharge 11/02/16 21:52 Blood Culture - Preliminary Blood No growth at 3 days 11/02/16 21:52 Blood Culture - Preliminary Blood No growth at 3 days DS: Provider Date of admission: 10/31/16 16:33 Primary care physician: Rian Johnson MD Attending physician on admission: Sebastien Cook MD Consults: 10/31/16 17:07 Consult to Physician [CONS] Routine Comment: fever,cough, positive BC from your clinic Consulting Provider: Rian Johnson When should Consulting Provider be notified: Now 10/31/16 17:42 Consult to Pharmacy [CONS] Routine Reason for Pharmacy Consult: Dose/Manage Vancomycin 11/01/16 08:58 Consult to Physician [CONS] Routine Comment: Fever. Possible SHAYAN. Consulting Provider: Keila Sumner Consult to Specialist Group: Cardiology Person Notified: dr. sumner Date Notified: 11/01/16 Time Notified: 14:55 11/01/16 08:59 Consult to Physician [CONS] Routine Comment: Fever. Gram positive bacteremia. Consulting Provider: Tamie Winchester Consult to Specialist Group: Infectious Disease When should Consulting Provider be notified: Now Person Notified: dr. ko Date Notified: 11/01/16 Time Notified: 15:00 11/04/16 08:35 Consult to Physician [CONS] Routine Comment: FUO with arthralgias Consulting Provider: Elena Beltran Consult to Specialist Group: Rheumatology When should Consulting Provider be notified: Now Person Notified: ANNA Date Notified: 11/04/16 Time Notified: 08:51 Discharging clinician: Raudel Gamez
[2016-11-06] MEDS: LISINOPRIL 10 MG TABLET PO SCH (10:20)
[2016-11-06] MEDS: PANTOPRAZOLE 40 MG TABLET PO SCH (10:20)
[2016-11-06 11:11] LABS: Aldolase 6.5 U/L (<7.7)
[2016-11-06 11:34] VITALS: BP 135/76
--- NOTE | 2016-11-06 12:12 | Rheumatology Progress Note ---
Assessment and Plan (1) Hip joint stiffness, bilateral Status: Acute (2) Fever of unknown origin Status: Acute Assessment and plan: Ms. 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 Other autoimmune connective tissue disease conditions like giant cell arteritis, polymyalgia rheumatica are suspected. Lymphoproliferative disorder may present with initial symptoms like patient's current presentation. His current symptoms are less likely related to adult onset stills disease. *Status post Bronchoscopy and biopsy done today on 11/06/16 *Order CPK, aldolase, LDH, serum ferritin, serum angiotensin-converting enzyme *Order serum protein electrophoresis and urine pleural protein electrophoresis, light chain, immune fixation analysis *Follow-up patient blood workup and decide further management (3) Elevated sed rate Status: Acute Rheumatology Subjective Interval history: Patient seen and examined. He is afebrile and stable. Skin rash is stable at his abdomen area. Blood work up ordered is in process. LDH normal and Serum ferritin of around 1000 not consistent with Adult onset still's disease. Plan for Bronchoscopy is upto [employer]. Patient developed no NEW symptoms. Exam Rheumatology - Constitutional Vitals: Vital Signs Temp Pulse Pulse Resp BP Pulse Ox Pulse Ox 11/06/16 11:33 97.4 F L 75 20 135/76 98 11/06/16 08:34 104 H 21 126/82 97 11/06/16 08:29 105 H 14 145/76 97 11/06/16 08:24 102 H 14 123/77 98 11/06/16 08:19 100 H 15 135/84 96 11/06/16 08:14 100 H 14 149/80 98 11/06/16 08:09 98 H 20 146/85 95 11/06/16 08:04 96 H 15 144/94 95 11/06/16 07:46 97.5 F L 84 20 138/77 95 11/06/16 07:39 81 12 169/88 98 11/06/16 04:00 99.7 F H 76 20 149/73 98 11/06/16 03:00 18 11/06/16 02:10 18 11/06/16 01:30 20 11/06/16 00:40 99.8 F H 83 20 144/65 97 11/05/16 20:00 99 F 18 L 18 120/67 94 L 11/05/16 19:15 94 H 11/05/16 17:18 100.5 F H 11/05/16 16:00 99.7 F H 78 20 153/74 96 General appearance: normal weight, no acute distress - Head Head exam: Present: normal inspection - Eye Eye exam: Present: EOMI Pupils: Present: ZARA - ENT ENT exam: Present: normal exam, normal oropharynx - Neck Neck exam: Present: normal inspection - Respiratory Respiratory exam: Present: clear to auscultation bilaterally. Absent: rales, rhonchi, wheezes - Cardiovascular Cardiovascular exam: Present: regular rate and rhythm - GI/Abdominal GI/Abdominal exam: Present: normal bowel sounds. Absent: ascites, guarding, organomegaly - Extremities Exam Extremities exam: Present: normal inspection, full ROM - Back Exam Back exam: Present: normal inspection - Neurological Exam Neurological exam: Present: alert, oriented X3, CN II-XII intact - Psychiatric Psychiatric exam: Present: normal affect - Skin Skin exam: Present: rash Results - Labs CBC & BMP: 11/04/16 05:58 11/04/16 05:58 Specialty Discharge - Follow Up or Referrals Follow up with: Elena Beltran MD [Physician] - 11/20/16 9:15 am Rian Johnson MD [Primary Care Provider] - 11/11/16 - Speciality Discharge Instructions Rheumatology Instructions: FU 2 weeks at Our Rheumatology Office at [facility] [place]
[2016-11-06 12:29] LABS: Immuno Free Light Chain Kappa 4.42 MG/DL (0.33-1.94); Immuno Free Light Chain Lambda 2.96 MG/DL (0.57-2.63); Immuno Free Light Chain Ratio 1.49 MG/DL (0.26-1.65)
[2016-11-07 01:01] LABS: Q Fever IgM Phase I Screen NEGATIVE (NEGATIVE); Q Fever IgM Phase II Screen NEGATIVE (NEGATIVE)
--- NOTE | 2016-11-07 11:15 | Pathology Report from [facility] ---
[facility] [place] ACCESSION # : [id number] PATIENT NAME : Taz Cho ORDERING DR : DANIA MARTINEZ MD CLINICAL HX: Possible Sarcoid POST-OP DX: Same SPECIMEN INFO: Washing,Bronchial,LeftLung - 2 mls wartery, mucoid, clear CLASS: II CLASS COMMENTS: Reactive respiratory cellsCELL BLOCK: Same CLASS LEGEND: CLASS 0 Material inadequate for diagnosis because of (see comment) CLASS I Absence of atypical or abnormal cells CLASS II Atypical Cytology but no evidence of malignancy CLASS III Cytology suggestive of but not conclusive for malignancy CLASS IV Cytology strongly suggestive of malignancy CLASS V Cytology conclusive for malignancy COLLECTED DATE: 11/06/2016 [facility] REPORT DATE: 11/07/2016 ELECTRONICALLY SIGNED BY: Milo Spencer M.D. 11/07/2016 - 8:31:55 MTDElly
--- NOTE | 2016-11-07 11:16 | Pathology Report from [facility] ---
[facility] [place] ACCESSION # : [id number] PATIENT NAME : Taz Cho ORDERING DR : DANIA MARTINEZ MD CLINICAL HX: Possible Sarcoid POST-OP DX: Same SPECIMEN INFO: Brushing,Bronchial,LeftLung - 1 brush (Received in Cytol[facility]) CLASS: II CLASS COMMENTS: Reactive respiratory epithelial cells CLASS LEGEND: CLASS 0 Material inadequate for diagnosis because of (see comment) CLASS I Absence of atypical or abnormal cells CLASS II Atypical Cytology but no evidence of malignancy CLASS III Cytology suggestive of but not conclusive for malignancy CLASS IV Cytology strongly suggestive of malignancy CLASS V Cytology conclusive for malignancy COLLECTED DATE: 11/06/2016 [facility] REPORT DATE: 11/07/2016 ELECTRONICALLY SIGNED BY: Milo Spencer M.D. 11/07/2016 - 8:36:21 MTDElly
--- NOTE | 2016-11-07 11:18 | Pathology Report from [facility] ---
[facility] ACCESSION # : [id number] PATIENT NAME : Grecia Palma ORDERING DR : DANIA MARTINEZ MD CLINICAL HX: NONE GIVEN POST-OP DX: Same SPECIMEN INFO: LT lung BX x 5 GROSS DESCRIPTION: Received in formalin labeled GRECIA PALMA is a 0.5 x 0.2 cm aggregate of holloway tissue submitted in one cassette. DIAGNOSIS FOR GRECIA PALMA: LEFT LUNG, BIOPSY: Fragments of benign respiratory mucosa with scattered acute and chronic inflammation and mild increased interstitial smooth muscle hyperplasia. Separate fragment of benign cartilage. COLLECTED DATE: 11/06/2016 [facility] REPORT DATE: 11/07/2016 ELECTRONICALLY SIGNED BY: Alexa Rodriguez M.D. 11/07/2016 - 10:35:09 [facility] SYSTEMElly
--- NOTE | 2016-11-07 18:15 | Pathology Report from [facility] ---
[facility] [place] ACCESSION # : [id number] PATIENT NAME : Taz Cho ORDERING DR : DANIA MARTINEZ MD CLINICAL HX: Possible Sarcoid POST-OP DX: Same SPECIMEN INFO: Washing,Bronchial,LeftLung - 2 mls wartery, mucoid, clear CLASS: II CLASS COMMENTS: Reactive respiratory cellsCELL BLOCK: Same CLASS LEGEND: CLASS 0 Material inadequate for diagnosis because of (see comment) CLASS I Absence of atypical or abnormal cells CLASS II Atypical Cytology but no evidence of malignancy CLASS III Cytology suggestive of but not conclusive for malignancy CLASS IV Cytology strongly suggestive of malignancy CLASS V Cytology conclusive for malignancy COLLECTED DATE: 11/06/2016 [facility] REPORT DATE: 11/07/2016 ELECTRONICALLY SIGNED BY: Milo Spencer M.D. 11/07/2016 - 8:31:55 MTDElly
--- NOTE | 2016-11-07 18:16 | Pathology Report from [facility] ---
[facility] [place] ACCESSION # : [id number] PATIENT NAME : Taz Cho ORDERING DR : DANIA MARTINEZ MD CLINICAL HX: Possible Sarcoid POST-OP DX: Same SPECIMEN INFO: Brushing,Bronchial,LeftLung - 1 brush (Received in Cytolyt) CLASS: II CLASS COMMENTS: Reactive respiratory epithelial cells CLASS LEGEND: CLASS 0 Material inadequate for diagnosis because of (see comment) CLASS I Absence of atypical or abnormal cells CLASS II Atypical Cytology but no evidence of malignancy CLASS III Cytology suggestive of but not conclusive for malignancy CLASS IV Cytology strongly suggestive of malignancy CLASS V Cytology conclusive for malignancy COLLECTED DATE: 11/06/2016 [facility] REPORT DATE: 11/07/2016 ELECTRONICALLY SIGNED BY: Milo Spencer M.D. 11/07/2016 - 8:36:21 MTDlEly
--- NOTE | 2016-11-07 18:18 | Pathology Report from [facility] ---
[facility] ACCESSION # : [id number] PATIENT NAME : Grecia Palma ORDERING DR : DANIA MARTINEZ MD CLINICAL HX: NONE GIVEN POST-OP DX: Same SPECIMEN INFO: LT lung BX x 5 GROSS DESCRIPTION: Received in formalin labeled GRECIA PALMA is a 0.5 x 0.2 cm aggregate of holloway tissue submitted in one cassette. DIAGNOSIS FOR GRECIA PALMA: LEFT LUNG, BIOPSY: Fragments of benign respiratory mucosa with scattered acute and chronic inflammation and mild increased interstitial smooth muscle hyperplasia. Separate fragment of benign cartilage. COLLECTED DATE: 11/06/2016 [facility] REPORT DATE: 11/07/2016 ELECTRONICALLY SIGNED BY: Alexa Rodriguez M.D. 11/07/2016 - 10:35:09 [facility]
== END 2016-11-06 11:23 | disposition home or self-care (01) | DRG 855 ==
LOC: N.ED 15:34 → N.EDINP 16:33 → SUATTDRO 16:33 → N.2E 17:16
PROVIDERS: ADMIT Family Medicine
PROC: BRONCHB (2016-11-06 08:05)